=== PATIENT | female | born 1955 | race Caucasian/White ===

== ENCOUNTER 2022-03-24 12:00 | Outpatient (CLI) | payer MEDICARE, OTHER | END 2022-03-24 12:01 | disposition home or self-care (01) | LOC: CSHCT 12:00 | PROVIDERS: ATTEND Physician Assistant Medical | DX: D64.9 Anemia, unspecified (principal); Z98.890 Other specified postprocedural states; K43.9 Ventral hernia without obstruction or gangrene; N32.89 Other specified disorders of bladder | CPT/HCPCS: 74176 ==

== ENCOUNTER 2022-09-27 16:01 | Inpatient (IN) | payer MEDICARE ==
[2022-09-27 17:22] LABS: #Basophils 0.1 10x3/uL (0.0-0.2); #Eosinphils 0.2 10x3/uL (0.0-0.5); #Monocytes 0.5 10x3/uL (0.0-1.1); #Neutrophils 3.7 10x3/uL (1.5-8.4); %Basophils 1.6 % (0.0-2.0); %Eosinophils 3.4 % (0.0-6.0); %Lymphocytes 20.2 % (18.0-47.0); %Neutrophils 65.6 % (40.0-75.0); Mean Corpuscular HGB CONC 31.9 g/dL (32.0-36.0); Mean Corpuscular Hemoglobin 30.5 pg (27.0-33.0); Mean Corpuscular Volume 95.8 fl (81.6-98.3); Mean Platelet Volume 10.1 fl (7.4-10.4); Platelet Count 214 10x3/uL (150-450); RBC Distribution Width 14.6 % (11.5-14.5); Red Blood Cell (RBC) Count 2.62 10x6/uL (3.90-5.03); White Blood Cell (WBC) Count 5.6 10x3/uL (3.5-10.5)
[2022-09-27 17:27] LABS: ALT (SGPT) 36 U/L (8-55); AST (SGOT) 30 U/L (5-34); Albumin 3.6 g/dL (3.4-4.8); Alkaline Phosphatase 75 U/L (40-110); Anion Gap 13 mmol/L (10-20); BUN (Urea Nitrogen) 32 mg/dL (9.8-20.1); Bilirubin, Total 0.5 mg/dL (0.2-1.2); Calc. Creatinine Clearance 0 mL/min (70-130); Calcium 8.9 mg/dL (7.8-10.44); Carbon Dioxide 26 mmol/L (23-31); Chloride 103 mmol/L (98-107); Estimated GFR 37; Globulin 2.8 g/dL (2.4-3.5); Glucose 98 mg/dL (80-115); Potassium 3.6 mmol/L (3.5-5.1); Protein, Total 6.4 g/dL (5.8-8.1); Sodium 138 mmol/L (136-145)
[2022-09-27] MEDS ORDERED: Furosemide 100 MG/10 ML VIAL ONE (18:11)
[2022-09-27] MEDS ORDERED: Senokot S 8.6-50 MG TAB PO PRN (20:31)
[2022-09-27] MEDS ORDERED: Calcium Carbonate 500 MG ChewTAB PO PRN (20:31)
[2022-09-27] MEDS ORDERED: Guaifenesin DM 100-10/5 ML UDCUP PO PRN (20:31)
[2022-09-27] MEDS ORDERED: Ondansetron PF 4 MG/2 ML Vial IVP PRN (20:31)
[2022-09-27] MEDS ORDERED: Dextrose 50% Abboject 50 ML SYRINGE SLOW IVP PRN (20:31)
[2022-09-27] MEDS ORDERED: Acetaminophen 325 MG TAB PO PRN (20:31)
[2022-09-27] MEDS ORDERED: Dextrose 5% in Water 1,000 ML IV PRN (20:31)
[2022-09-27] MEDS ORDERED: Nitroglycerin 0.4 MG TAB (25 Tab Bottle) SL PRN (20:44)
[2022-09-27] MEDS ORDERED: Potassium Chloride 20 MEQ TAB PO SCH (21:00)
[2022-09-27] MEDS: hydrALAZINE 25 MG TAB PO SCH (22:14)
[2022-09-27] MEDS: Sertraline 100 MG TAB PO SCH (22:15)
[2022-09-27] MEDS: Rosuvastatin 20 MG TAB PO SCH (22:15)
[2022-09-27] MEDS: Primidone 50 MG TAB PO SCH (22:16)
[2022-09-28 04:02] LABS: #Basophils 0.1 10x3/uL (0.0-0.2); #Eosinphils 0.3 10x3/uL (0.0-0.5); #Monocytes 0.5 10x3/uL (0.0-1.1); #Neutrophils 3.4 10x3/uL (1.5-8.4); %Basophils 1.2 % (0.0-2.0); %Eosinophils 4.7 % (0.0-6.0); %Lymphocytes 27.2 % (18.0-47.0); %Monocytes 9.1 % (0.0-10.0); %Neutrophils 57.5 % (40.0-75.0); Hemoglobin 7.1 g/dL (12.0-15.5); Mean Corpuscular HGB CONC 32.3 g/dL (32.0-36.0); Mean Corpuscular Hemoglobin 30.7 pg (27.0-33.0); Mean Corpuscular Volume 95.2 fl (81.6-98.3); Mean Platelet Volume 10.2 fl (7.4-10.4); Platelet Count 185 10x3/uL (150-450); RBC Distribution Width 14.5 % (11.5-14.5); Red Blood Cell (RBC) Count 2.31 10x6/uL (3.90-5.03)
[2022-09-28 04:13] LABS: Anion Gap 13 mmol/L (10-20); BUN (Urea Nitrogen) 31 mg/dL (9.8-20.1); Calc. Creatinine Clearance 55 mL/min (70-130); Carbon Dioxide 26 mmol/L (23-31); Chloride 106 mmol/L (98-107); Estimated GFR 39; Glucose 102 mg/dL (80-115); Potassium 3.6 mmol/L (3.5-5.1); Sodium 141 mmol/L (136-145)
[2022-09-28 04:31] LABS: Iron 38 ug/dL (50-170); Iron Binding Capacity, Total 193 mcg/dL (265-497)
[2022-09-28 04:35] LABS: Ferritin 486.48 ng/mL (10-291); Thyroid Stimulating Hormone 3.9875 uIU/mL (0.35-4.94)
[2022-09-28] MEDS ORDERED: Furosemide 20 MG/2 ML VIAL SLOW IVP SCH (06:00)
[2022-09-28] MEDS: Levothyroxine Sodium 100 MCG TAB PO SCH (06:09)
[2022-09-28] MEDS: Furosemide 40 MG/4 ML VIAL SLOW IVP SCH ×2 (06:10→15:26)
[2022-09-28] MEDS ORDERED: Aspirin 81 mg Enteric Coated Tablet PO SCH (09:00)
[2022-09-28] MEDS: Gabapentin 100 MG CAP PO SCH ×3 (09:39→20:42)
[2022-09-28] MEDS: Calcitriol 0.25 MCG CAP PO SCH (09:41)
[2022-09-28] MEDS: Ferrous Sulfate 325 MG TAB PO SCH ×2 (09:41→15:26)
[2022-09-28] MEDS: Folic Acid/Vit B Comp W-C PO SCH (09:42)
[2022-09-28] MEDS: hydrALAZINE 25 MG TAB PO SCH ×3 (09:44→20:43)
[2022-09-28] MEDS: Lantus 1000 UNITS/10 ML VIAL SC SCH (09:45)
[2022-09-28] MEDS: HumaLOG 300 UNITS/3 ML VIAL SC PRN (11:44)
[2022-09-28] MEDS ORDERED: Amlodipine 5 MG TAB PO SCH (12:00)
[2022-09-28 13:40] LABS: Vitamin B12 Greater than 2000 pg/mL (211-911)
[2022-09-28] MEDS ORDERED: EPOETIN ALFA-EPBX (ESRD) 10,000 UNIT/ML VIAL SC SCH (14:45)
[2022-09-28] MEDS: Rosuvastatin 20 MG TAB PO SCH (20:42)
[2022-09-28] MEDS: Primidone 50 MG TAB PO SCH (20:43)
[2022-09-28] MEDS: Sertraline 100 MG TAB PO SCH (20:44)
[2022-09-29 04:47] LABS: #Basophils 0.1 10x3/uL (0.0-0.2); #Eosinphils 0.2 10x3/uL (0.0-0.5); #Monocytes 0.6 10x3/uL (0.0-1.1); #Neutrophils 3.5 10x3/uL (1.5-8.4); %Basophils 1.2 % (0.0-2.0); %Eosinophils 3.8 % (0.0-6.0); %Lymphocytes 25.8 % (18.0-47.0); %Monocytes 9.9 % (0.0-10.0); Hemoglobin 8.7 g/dL (12.0-15.5); Mean Corpuscular HGB CONC 33.1 g/dL (32.0-36.0); Mean Corpuscular Hemoglobin 31.1 pg (27.0-33.0); Mean Corpuscular Volume 93.9 fl (81.6-98.3); Mean Platelet Volume 10.3 fl (7.4-10.4); Platelet Count 160 10x3/uL (150-450); RBC Distribution Width 14.8 % (11.5-14.5)
[2022-09-29 05:06] LABS: Anion Gap 13 mmol/L (10-20); BUN (Urea Nitrogen) 37 mg/dL (9.8-20.1); Calc. Creatinine Clearance 43 mL/min (70-130); Calcium 9.1 mg/dL (7.8-10.44); Carbon Dioxide 26 mmol/L (23-31); Chloride 104 mmol/L (98-107); Estimated GFR 29; Glucose 148 mg/dL (80-115); Sodium 139 mmol/L (136-145)
[2022-09-29] MEDS: Furosemide 40 MG/4 ML VIAL SLOW IVP SCH ×2 (05:25→15:06)
[2022-09-29] MEDS: Levothyroxine Sodium 100 MCG TAB PO SCH (05:25)
[2022-09-29] MEDS: Folic Acid/Vit B Comp W-C PO SCH (10:21)
[2022-09-29] MEDS: Gabapentin 100 MG CAP PO SCH ×3 (10:21→22:10)
[2022-09-29] MEDS: hydrALAZINE 25 MG TAB PO SCH ×3 (10:23→22:09)
[2022-09-29] MEDS: Ferrous Sulfate 325 MG TAB PO SCH ×2 (10:24→15:07)
[2022-09-29] MEDS: Lantus 1000 UNITS/10 ML VIAL SC SCH (10:24)
[2022-09-29] MEDS: Amlodipine 5 MG TAB PO SCH (10:24)
[2022-09-29] MEDS: Calcitriol 0.25 MCG CAP PO SCH (10:24)
[2022-09-29] MEDS: HumaLOG 300 UNITS/3 ML VIAL SC PRN (17:17)
[2022-09-29] MEDS: Sertraline 100 MG TAB PO SCH (22:09)
[2022-09-29] MEDS: Primidone 50 MG TAB PO SCH (22:10)
[2022-09-29] MEDS: Rosuvastatin 20 MG TAB PO SCH (22:11)
[2022-09-30 05:50] LABS: #Basophils 0.1 10x3/uL (0.0-0.2); #Eosinphils 0.3 10x3/uL (0.0-0.5); #Monocytes 0.7 10x3/uL (0.0-1.1); #Neutrophils 3.4 10x3/uL (1.5-8.4); %Basophils 1.2 % (0.0-2.0); %Lymphocytes 26.5 % (18.0-47.0); %Monocytes 10.9 % (0.0-10.0); %Neutrophils 56.1 % (40.0-75.0); Hemoglobin 8.6 g/dL (12.0-15.5); Mean Corpuscular Hemoglobin 30.5 pg (27.0-33.0); Mean Corpuscular Volume 95.4 fl (81.6-98.3); Mean Platelet Volume 10.6 fl (7.4-10.4); Platelet Count 160 10x3/uL (150-450); RBC Distribution Width 14.1 % (11.5-14.5); Red Blood Cell (RBC) Count 2.82 10x6/uL (3.90-5.03)
[2022-09-30 06:04] LABS: Anion Gap 16 mmol/L (10-20); BUN (Urea Nitrogen) 48 mg/dL (9.8-20.1); Calc. Creatinine Clearance 42 mL/min (70-130); Calcium 9.1 mg/dL (7.8-10.44); Carbon Dioxide 26 mmol/L (23-31); Chloride 101 mmol/L (98-107); Estimated GFR 30; Glucose 170 mg/dL (80-115); Potassium 3.9 mmol/L (3.5-5.1); Sodium 139 mmol/L (136-145)
[2022-09-30] MEDS: hydrALAZINE 25 MG TAB PO SCH ×3 (07:16→22:00)
[2022-09-30] MEDS: Furosemide 40 MG/4 ML VIAL SLOW IVP SCH (07:16)
[2022-09-30] MEDS: Levothyroxine Sodium 100 MCG TAB PO SCH (07:16)
[2022-09-30] MEDS: HumaLOG 300 UNITS/3 ML VIAL SC PRN ×2 (07:17→16:28)
[2022-09-30] MEDS: Folic Acid/Vit B Comp W-C PO SCH (09:49)
[2022-09-30] MEDS: Amlodipine 5 MG TAB PO SCH (09:50)
[2022-09-30] MEDS: Gabapentin 100 MG CAP PO SCH ×3 (09:51→21:59)
[2022-09-30] MEDS: Ferrous Sulfate 325 MG TAB PO SCH ×2 (09:51→15:57)
[2022-09-30] MEDS: Calcitriol 0.25 MCG CAP PO SCH (09:52)
[2022-09-30] MEDS: Lantus 1000 UNITS/10 ML VIAL SC SCH (09:53)
[2022-09-30] MEDS ORDERED: Amlodipine 5 MG TAB PO SCH (11:15)
[2022-09-30] MEDS: Furosemide 40 MG TAB PO SCH (15:57)
[2022-09-30] MEDS: Rosuvastatin 20 MG TAB PO SCH (21:59)
[2022-09-30] MEDS: Sertraline 100 MG TAB PO SCH (21:59)
[2022-09-30] MEDS: Primidone 50 MG TAB PO SCH (22:01)
[2022-09-30 22:32] LABS: Creatinine, Urine 31.85 mg/dL (47-110)
[2022-09-30 22:43] LABS: Microalbumin/Creat Ratio 2386.2 mg/g (Less than 30)
[2022-10-01 05:08] LABS: #Basophils 0.1 10x3/uL (0.0-0.2); #Eosinphils 0.4 10x3/uL (0.0-0.5); #Monocytes 0.7 10x3/uL (0.0-1.1); %Basophils 1.2 % (0.0-2.0); %Eosinophils 5.2 % (0.0-6.0); %Monocytes 9.9 % (0.0-10.0); %Neutrophils 59.1 % (40.0-75.0); Hemoglobin 9.2 g/dL (12.0-15.5); Mean Corpuscular HGB CONC 32.2 g/dL (32.0-36.0); Mean Corpuscular Hemoglobin 30.5 pg (27.0-33.0); Mean Corpuscular Volume 94.7 fl (81.6-98.3); Mean Platelet Volume 10.3 fl (7.4-10.4); Platelet Count 154 10x3/uL (150-450); Red Blood Cell (RBC) Count 3.02 10x6/uL (3.90-5.03); White Blood Cell (WBC) Count 6.7 10x3/uL (3.5-10.5)
[2022-10-01] MEDS: Levothyroxine Sodium 100 MCG TAB PO SCH (05:08)
[2022-10-01 05:19] LABS: Albumin 3.1 g/dL (3.4-4.8); Anion Gap 16 mmol/L (10-20); BUN (Urea Nitrogen) 52 mg/dL (9.8-20.1); BUN/Creatinine Ratio 30.59; Calc. Creatinine Clearance 43 mL/min (70-130); Calcium 9.5 mg/dL (7.8-10.44); Carbon Dioxide 26 mmol/L (23-31); Chloride 102 mmol/L (98-107); Estimated GFR 32; Glucose 154 mg/dL (80-115); Potassium 4.4 mmol/L (3.5-5.1); Sodium 140 mmol/L (136-145)
[2022-10-01] MEDS: Ferrous Sulfate 325 MG TAB PO SCH ×2 (08:52→16:08)
[2022-10-01] MEDS: Gabapentin 100 MG CAP PO SCH ×3 (08:53→21:25)
[2022-10-01] MEDS: Furosemide 40 MG TAB PO SCH ×2 (08:53→14:23)
[2022-10-01] MEDS: Calcitriol 0.25 MCG CAP PO SCH (08:54)
[2022-10-01] MEDS: hydrALAZINE 25 MG TAB PO SCH ×3 (08:54→21:24)
[2022-10-01] MEDS: Folic Acid/Vit B Comp W-C PO SCH (08:57)
[2022-10-01] MEDS ORDERED: Amlodipine 5 MG TAB PO SCH (09:00)
[2022-10-01] MEDS: Lantus 1000 UNITS/10 ML VIAL SC SCH (09:02)
[2022-10-01] MEDS: HumaLOG 300 UNITS/3 ML VIAL SC PRN ×3 (12:12→22:32)
[2022-10-01] MEDS: guaiFENesin ER 600 MG TAB PO SCH (21:25)
[2022-10-01] MEDS: Rosuvastatin 20 MG TAB PO SCH (21:25)
[2022-10-01] MEDS: Sertraline 100 MG TAB PO SCH (21:25)
[2022-10-01] MEDS: Primidone 50 MG TAB PO SCH (21:32)
[2022-10-02 04:40] LABS: #Basophils 0.1 10x3/uL (0.0-0.2); #Eosinphils 0.3 10x3/uL (0.0-0.5); #Monocytes 0.8 10x3/uL (0.0-1.1); #Neutrophils 3.8 10x3/uL (1.5-8.4); %Basophils 1.4 % (0.0-2.0); %Eosinophils 5.1 % (0.0-6.0); %Monocytes 12.6 % (0.0-10.0); %Neutrophils 57.4 % (40.0-75.0); Hemoglobin 8.9 g/dL (12.0-15.5); Mean Corpuscular HGB CONC 32.4 g/dL (32.0-36.0); Mean Corpuscular Hemoglobin 30.8 pg (27.0-33.0); Mean Corpuscular Volume 95.2 fl (81.6-98.3); Mean Platelet Volume 10.5 fl (7.4-10.4); Platelet Count 175 10x3/uL (150-450); RBC Distribution Width 14.1 % (11.5-14.5); Red Blood Cell (RBC) Count 2.89 10x6/uL (3.90-5.03); White Blood Cell (WBC) Count 6.7 10x3/uL (3.5-10.5)
[2022-10-02 04:45] LABS: Anion Gap 12 mmol/L (10-20); BUN (Urea Nitrogen) 50 mg/dL (9.8-20.1); Calc. Creatinine Clearance 42 mL/min (70-130); Calcium 9.3 mg/dL (7.8-10.44); Carbon Dioxide 28 mmol/L (23-31); Chloride 102 mmol/L (98-107); Estimated GFR 31; Glucose 125 mg/dL (80-115); Potassium 4.4 mmol/L (3.5-5.1); Sodium 138 mmol/L (136-145)
[2022-10-02] MEDS: Levothyroxine Sodium 100 MCG TAB PO SCH (05:41)
[2022-10-02] MEDS: guaiFENesin ER 600 MG TAB PO SCH ×3 (07:59→20:19)
[2022-10-02] MEDS: Calcitriol 0.25 MCG CAP PO SCH (07:59)
[2022-10-02] MEDS: Amlodipine 10 MG TAB PO SCH (07:59)
[2022-10-02] MEDS: Ferrous Sulfate 325 MG TAB PO SCH ×2 (08:00→16:40)
[2022-10-02] MEDS: Furosemide 40 MG TAB PO SCH ×2 (08:03→13:45)
[2022-10-02] MEDS: hydrALAZINE 25 MG TAB PO SCH ×3 (08:03→20:17)
[2022-10-02] MEDS: Gabapentin 100 MG CAP PO SCH ×3 (08:04→20:18)
[2022-10-02] MEDS: HumaLOG 300 UNITS/3 ML VIAL SC PRN ×4 (08:10→20:43)
[2022-10-02] MEDS ORDERED: Ipratropium/Albuterol 3 ML NEB NEB SCH (08:45)
[2022-10-02] MEDS: Lantus 1000 UNITS/10 ML VIAL SC SCH (09:54)
[2022-10-02] MEDS: Folic Acid/Vit B Comp W-C PO SCH (11:03)
[2022-10-02] MEDS: Ipratropium/Albuterol 3 ML NEB NEB SCH ×3 (11:45→18:57)
[2022-10-02] MEDS: Rosuvastatin 20 MG TAB PO SCH (20:17)
[2022-10-02] MEDS: Primidone 50 MG TAB PO SCH (20:18)
[2022-10-02] MEDS: Sertraline 100 MG TAB PO SCH (20:20)
[2022-10-03 04:54] LABS: #Basophils 0.1 10x3/uL (0.0-0.2); #Eosinphils 0.2 10x3/uL (0.0-0.5); #Monocytes 0.7 10x3/uL (0.0-1.1); #Neutrophils 4.6 10x3/uL (1.5-8.4); %Eosinophils 2.2 % (0.0-6.0); %Lymphocytes 19.8 % (18.0-47.0); %Monocytes 9.5 % (0.0-10.0); %Neutrophils 67.1 % (40.0-75.0); Hemoglobin 8.4 g/dL (12.0-15.5); Mean Corpuscular HGB CONC 31.5 g/dL (32.0-36.0); Mean Corpuscular Volume 95.4 fl (81.6-98.3); Mean Platelet Volume 10.2 fl (7.4-10.4); Platelet Count 162 10x3/uL (150-450); RBC Distribution Width 14.1 % (11.5-14.5); White Blood Cell (WBC) Count 6.9 10x3/uL (3.5-10.5)
[2022-10-03 05:07] LABS: Anion Gap 14 mmol/L (10-20); BUN (Urea Nitrogen) 56 mg/dL (9.8-20.1); Calc. Creatinine Clearance 36 mL/min (70-130); Calcium 9.3 mg/dL (7.8-10.44); Carbon Dioxide 26 mmol/L (23-31); Chloride 100 mmol/L (98-107); Estimated GFR 26; Glucose 181 mg/dL (80-115); Potassium 4.2 mmol/L (3.5-5.1); Sodium 136 mmol/L (136-145)
[2022-10-03] MEDS: Levothyroxine Sodium 100 MCG TAB PO SCH (06:37)
[2022-10-03] MEDS: HumaLOG 300 UNITS/3 ML VIAL SC PRN (06:46)
[2022-10-03] MEDS: Ipratropium/Albuterol 3 ML NEB NEB SCH ×4 (07:05→20:31)
[2022-10-03] MEDS: guaiFENesin ER 600 MG TAB PO SCH ×2 (10:27→21:19)
[2022-10-03] MEDS: Furosemide 40 MG TAB PO SCH ×2 (10:27→15:26)
[2022-10-03] MEDS: Ferrous Sulfate 325 MG TAB PO SCH ×2 (10:27→15:25)
[2022-10-03] MEDS: Gabapentin 100 MG CAP PO SCH ×3 (10:28→21:19)
[2022-10-03] MEDS: Amlodipine 10 MG TAB PO SCH (10:28)
[2022-10-03] MEDS: Lantus 1000 UNITS/10 ML VIAL SC SCH (10:28)
[2022-10-03] MEDS: Calcitriol 0.25 MCG CAP PO SCH (10:28)
[2022-10-03] MEDS: Folic Acid/Vit B Comp W-C PO SCH (10:28)
[2022-10-03] MEDS: hydrALAZINE 25 MG TAB PO SCH ×3 (10:28→21:24)
[2022-10-03] MEDS: Primidone 50 MG TAB PO SCH (21:19)
[2022-10-03] MEDS: Rosuvastatin 20 MG TAB PO SCH (21:20)
[2022-10-03] MEDS: Sertraline 100 MG TAB PO SCH (21:20)
[2022-10-04] MEDS: Levothyroxine Sodium 100 MCG TAB PO SCH (06:23)
[2022-10-04 06:27] VITALS: BMI 31.5
[2022-10-04] MEDS: Ipratropium/Albuterol 3 ML NEB NEB SCH ×3 (07:30→15:00)
[2022-10-04] MEDS: Lantus 1000 UNITS/10 ML VIAL SC SCH (08:51)
[2022-10-04] MEDS: Gabapentin 100 MG CAP PO SCH ×2 (08:52→16:00)
[2022-10-04] MEDS: guaiFENesin ER 600 MG TAB PO SCH (08:52)
[2022-10-04] MEDS: Amlodipine 10 MG TAB PO SCH (08:52)
[2022-10-04] MEDS: hydrALAZINE 25 MG TAB PO SCH ×2 (08:53→12:19)
[2022-10-04] MEDS: Calcitriol 0.25 MCG CAP PO SCH (08:54)
[2022-10-04] MEDS: Ferrous Sulfate 325 MG TAB PO SCH ×2 (08:54→17:01)
[2022-10-04] MEDS: Furosemide 40 MG TAB PO SCH ×2 (08:54→13:45)
[2022-10-04] MEDS: Folic Acid/Vit B Comp W-C PO SCH (08:54)
[2022-10-04] MEDS: HumaLOG 300 UNITS/3 ML VIAL SC PRN (12:19)
[2022-10-04 16:36] VITALS: BP 171/73; TEMP 98.7
== END 2022-10-04 18:22 | disposition home or self-care (01) | DRG 291 ==
LOC: CSHERS 16:01 → CSHTELE 21:36
PROVIDERS: ADMIT Student in an Organized Health Care Education/Training Program; ATTEND Family Medicine
PROC: 30233N1 Transfusion of Nonautologous Red Blood Cells into Peripheral Vein, Percutaneous Approach (ICD-10-PCS; principal; 2022-09-28)
DX: I13.0 Hypertensive heart and chronic kidney disease with heart failure and stage 1 through stage 4 chronic kidney disease, or unspecified chronic kidney disease (principal); I50.33 Acute on chronic diastolic (congestive) heart failure; N17.9 Acute kidney failure, unspecified; N18.4 Chronic kidney disease, stage 4 (severe); Z20.822 Contact with and (suspected) exposure to COVID-19; R53.81 Other malaise; I25.10 Atherosclerotic heart disease of native coronary artery without angina pectoris; K21.9 Gastro-esophageal reflux disease without esophagitis; E89.0 Postprocedural hypothyroidism; E11.22 Type 2 diabetes mellitus with diabetic chronic kidney disease; M19.90 Unspecified osteoarthritis, unspecified site; G40.909 Epilepsy, unspecified, not intractable, without status epilepticus; F41.1 Generalized anxiety disorder; F32.9 Major depressive disorder, single episode, unspecified; G43.909 Migraine, unspecified, not intractable, without status migrainosus; N18.30 Chronic kidney disease, stage 3 unspecified; G47.33 Obstructive sleep apnea (adult) (pediatric); F01.50 Vascular dementia, unspecified severity, without behavioral disturbance, psychotic disturbance, mood disturbance, and anxiety; E78.2 Mixed hyperlipidemia; D63.1 Anemia in chronic kidney disease; E11.319 Type 2 diabetes mellitus with unspecified diabetic retinopathy without macular edema; E11.43 Type 2 diabetes mellitus with diabetic autonomic (poly)neuropathy; I65.23 Occlusion and stenosis of bilateral carotid arteries; Z90.49 Acquired absence of other specified parts of digestive tract; Z90.710 Acquired absence of both cervix and uterus; Z95.5 Presence of coronary angioplasty implant and graft; Z95.1 Presence of aortocoronary bypass graft; Z86.73 Personal history of transient ischemic attack (TIA), and cerebral infarction without residual deficits; Z88.8 Allergy status to other drugs, medicaments and biological substances; Z88.2 Allergy status to sulfonamides; Z79.899 Other long term (current) drug therapy; Z79.890 Hormone replacement therapy; Z79.4 Long term (current) use of insulin; Z79.82 Long term (current) use of aspirin; Z83.3 Family history of diabetes mellitus; Z87.442 Personal history of urinary calculi
CPT/HCPCS: 36415; 36416; 36430; 71045; 80048; 80053; 80069; 82043; 82607; 82728; 83540; 83550; 83880; 84156; 84443; 84484; 85025; 86850; 86900; 86901; 93005; 94640; 94660; 94760; 94762; 94799; 96374; J1650; J1815; J1940; J7620; P9016; Q5105; U0003; U0005

== ENCOUNTER 2023-03-11 09:45 | Day surgery (SDC) | payer MEDICARE ==
[2023-03-10 11:42] VITALS: BMI 30.7
[2023-03-11] MEDS ORDERED: PROPOFOL 40 ML ONE (11:53)
== END 2023-03-11 13:33 | disposition home or self-care (01) ==
LOC: CSHSDC 09:45
PROVIDERS: ATTEND Internal Medicine Gastroenterology
PROC: 0DB68ZX Excision of Stomach, Via Natural or Artificial Opening Endoscopic, Diagnostic (ICD-10-PCS; principal; 2023-03-11)
PROC: 0DBM8ZZ Excision of Descending Colon, Via Natural or Artificial Opening Endoscopic (ICD-10-PCS; 2023-03-11)
DX: D12.4 Benign neoplasm of descending colon (principal); K31.89 Other diseases of stomach and duodenum; Z12.11 Encounter for screening for malignant neoplasm of colon; N18.9 Chronic kidney disease, unspecified; K57.30 Diverticulosis of large intestine without perforation or abscess without bleeding; E11.22 Type 2 diabetes mellitus with diabetic chronic kidney disease; I50.9 Heart failure, unspecified; I13.0 Hypertensive heart and chronic kidney disease with heart failure and stage 1 through stage 4 chronic kidney disease, or unspecified chronic kidney disease; D64.9 Anemia, unspecified; E78.5 Hyperlipidemia, unspecified; E03.9 Hypothyroidism, unspecified; K21.9 Gastro-esophageal reflux disease without esophagitis; Z86.010 Personal history of colon polyps; Z90.710 Acquired absence of both cervix and uterus; Z88.8 Allergy status to other drugs, medicaments and biological substances; Z88.2 Allergy status to sulfonamides; Z88.1 Allergy status to other antibiotic agents; Z98.890 Other specified postprocedural states; Z79.890 Hormone replacement therapy; Z79.899 Other long term (current) drug therapy
CPT/HCPCS: 88305; J2704

== ENCOUNTER 2023-07-13 11:08 | Inpatient (IN) | payer MEDICARE ==
[2023-07-13 11:53] LABS: #Basophils 0.1 10x3/uL (0.0-0.2); #Eosinphils 0.1 10x3/uL (0.0-0.5); #Monocytes 0.6 10x3/uL (0.0-1.1); #Neutrophils 5.3 10x3/uL (1.5-8.4); %Basophils 0.8 % (0.0-2.0); %Eosinophils 1.2 % (0.0-6.0); %Lymphocytes 17.8 % (18.0-47.0); %Monocytes 7.9 % (0.0-10.0); %Neutrophils 71.9 % (40.0-75.0); Hematocrit 37.5 % (34.9-44.5); Hemoglobin 12.6 g/dL (12.0-15.5); Mean Corpuscular HGB CONC 33.6 g/dL (32.0-36.0); Mean Corpuscular Hemoglobin 29.9 pg (27.0-33.0); Mean Corpuscular Volume 89.1 fl (81.6-98.3); Platelet Count 164 10x3/uL (150-450); Red Blood Cell (RBC) Count 4.21 10x6/uL (3.90-5.03); White Blood Cell (WBC) Count 7.4 10x3/uL (3.5-10.5)
[2023-07-13 12:08] LABS: ALT (SGPT) 14 U/L (8-55); AST (SGOT) 17 U/L (5-34); Albumin 3.4 g/dL (3.4-4.8); Alkaline Phosphatase 85 U/L (40-110); Anion Gap 16 mmol/L (10-20); BUN (Urea Nitrogen) 35 mg/dL (9.8-20.1); Bilirubin, Total 0.5 mg/dL (0.2-1.2); CK (CPK) 44 U/L (29-168); Calc. Creatinine Clearance 0 mL/min (70-130); Calcium 9.1 mg/dL (7.8-10.44); Carbon Dioxide 20 mmol/L (23-31); Chloride 107 mmol/L (98-107); Estimated GFR 33; Glucose 282 mg/dL (80-115); Potassium 4.4 mmol/L (3.5-5.1); Protein, Total 6.4 g/dL (5.8-8.1); Sodium 139 mmol/L (136-145)
[2023-07-13 12:10] LABS: Troponin I 0.082 ng/mL (< 0.028)
[2023-07-13] MEDS ORDERED: hydrALAZINE 20 MG/ML VIAL ONE (12:11)
[2023-07-13 12:52] LABS: SARS-CoV-2 NAA Rapid Test Not Detected (NotDetected)
[2023-07-13] MEDS ORDERED: Dextrose 5% in Water 1,000 ML IV PRN (14:28)
[2023-07-13] MEDS ORDERED: Senokot S 8.6-50 MG TAB PO PRN (14:28)
[2023-07-13] MEDS ORDERED: Glucagon 1 MG/ML KIT IM PRN (14:28)
[2023-07-13] MEDS ORDERED: Acetaminophen 325 MG TAB PO PRN (14:28)
[2023-07-13] MEDS ORDERED: Loperamide HCl 2 MG CAP PO PRN (14:28)
[2023-07-13] MEDS ORDERED: Dextrose 50% Abboject 50 ML SYRINGE SLOW IVP PRN (14:28)
[2023-07-13] MEDS ORDERED: Sodium Chloride 0.9% 1,000 ML IV SCH (14:30)
[2023-07-13 15:15] LABS: Troponin I 0.086 ng/mL (< 0.028)
[2023-07-13 15:29] LABS: Magnesium 1.4 mg/dL (1.6-2.6)
[2023-07-13] MEDS ORDERED: Magnesium Sulfate 4 GM in Sodium Chloride 0.9% 250 ML 250 ML IVPB SCH (15:45)
[2023-07-13 16:13] VITALS: BMI 28.7
[2023-07-13] MEDS: hydrALAZINE 20 MG/ML VIAL SLOW IVP PRN (17:03)
[2023-07-13] MEDS: Magnesium 2 GM/50 ML(in water) 2 GM in Premix 1 BAG IVPB SCH ×2 (17:13→19:03)
[2023-07-13] MEDS: Insulin Regular 300 UNITS/3 ML VIAL SC PRN ×2 (17:15→23:31)
[2023-07-13 18:15] LABS: Troponin I 0.097 ng/mL (< 0.028)
[2023-07-13] MEDS: Ondansetron ODT 4 MG TAB PO PRN (19:03)
[2023-07-13] MEDS: Gabapentin 100 MG CAP PO SCH (21:44)
[2023-07-13] MEDS: hydrALAZINE 25 MG TAB PO SCH (21:44)
[2023-07-13] MEDS: Rosuvastatin 20 MG TAB PO SCH (21:45)
[2023-07-14 04:43] LABS: #Basophils 0.1 10x3/uL (0.0-0.2); #Eosinphils 0.2 10x3/uL (0.0-0.5); #Monocytes 0.8 10x3/uL (0.0-1.1); #Neutrophils 6.2 10x3/uL (1.5-8.4); %Basophils 0.7 % (0.0-2.0); %Eosinophils 1.6 % (0.0-6.0); %Lymphocytes 23.1 % (18.0-47.0); %Monocytes 8.7 % (0.0-10.0); %Neutrophils 65.5 % (40.0-75.0); Hematocrit 34.7 % (34.9-44.5); Hemoglobin 11.6 g/dL (12.0-15.5); Mean Corpuscular HGB CONC 33.4 g/dL (32.0-36.0); Mean Corpuscular Hemoglobin 29.9 pg (27.0-33.0); Mean Corpuscular Volume 89.4 fl (81.6-98.3); Mean Platelet Volume 11.2 fl (7.4-10.4); Platelet Count 154 10x3/uL (150-450); RBC Distribution Width 14.3 % (11.5-14.5); Red Blood Cell (RBC) Count 3.88 10x6/uL (3.90-5.03); White Blood Cell (WBC) Count 9.4 10x3/uL (3.5-10.5)
[2023-07-14 04:51] LABS: Anion Gap 13 mmol/L (10-20); BUN (Urea Nitrogen) 33 mg/dL (9.8-20.1); Calc. Creatinine Clearance 45 mL/min (70-130); Calcium 8.8 mg/dL (7.8-10.44); Carbon Dioxide 22 mmol/L (23-31); Chloride 108 mmol/L (98-107); Estimated GFR 36; Glucose 229 mg/dL (80-115); Potassium 4.3 mmol/L (3.5-5.1); Sodium 139 mmol/L (136-145)
[2023-07-14] MEDS: Levothyroxine Sodium 100 MCG TAB PO SCH (06:28)
[2023-07-14] MEDS: Insulin Regular 300 UNITS/3 ML VIAL SC PRN ×4 (06:32→21:22)
[2023-07-14 09:14] LABS: Magnesium 2.5 mg/dL (1.6-2.6); Troponin I 0.093 ng/mL (< 0.028)
[2023-07-14] MEDS: hydrALAZINE 25 MG TAB PO SCH ×3 (09:31→21:10)
[2023-07-14] MEDS: Amlodipine 5 MG TAB PO SCH (09:32)
[2023-07-14] MEDS: Lisinopril 10 MG TAB PO SCH (09:32)
[2023-07-14] MEDS: Gabapentin 100 MG CAP PO SCH ×3 (09:33→21:07)
[2023-07-14] MEDS: Isosorbide Mononitrate 30 MG ER.TAB PO SCH (09:33)
[2023-07-14 18:04] LABS: Bilirubin Neg (Negative); Blood, Urine 10 (Negative); Clarity Clear (Clear); Glucose, Urine (Dipstick) >=1000 mg/dL (Negative); Ketone, Urine Negative (Negative); Leukocyte 25 (Negative); Nitrite Negative (Negative); Protein, Urine (Dipstick) 500 mg/dl (Neg-Trace); Specific Gravity, Urine 1.015 (1.005-1.030); Urobilinogen Normal mg/dL (Less than 2)
[2023-07-14 18:26] LABS: Bacteria/HPF 2+ HPF (None Seen); CAUTI Indications for Culture Dysuria,urgency,freq; RBC/HPF 0-3 HPF (0-3); Squamous Epithelial 0-3 HPF (0-3); Transitional Epithelial 0-3 HPF (None Seen)
[2023-07-14 18:27] LABS: Urine Culture Reflex No No
[2023-07-14] MEDS: Primidone 50 MG TAB PO SCH (21:11)
[2023-07-14] MEDS: Rosuvastatin 20 MG TAB PO SCH (21:19)
[2023-07-14] MEDS: Sertraline 100 MG TAB PO SCH (21:20)
[2023-07-15] MEDS: Ondansetron ODT 4 MG TAB PO PRN ×2 (00:17→08:57)
[2023-07-15] MEDS: Levothyroxine Sodium 100 MCG TAB PO SCH (06:29)
[2023-07-15] MEDS: Insulin Regular 300 UNITS/3 ML VIAL SC PRN ×3 (06:43→21:37)
[2023-07-15] MEDS ORDERED: Nitrofurantoin Monohyd/M-Cryst 100 MG CAP PO SCH (09:00)
[2023-07-15 09:28] LABS: Anion Gap 12 mmol/L (10-20); BUN (Urea Nitrogen) 35 mg/dL (9.8-20.1); Calc. Creatinine Clearance 41 mL/min (70-130); Calcium 8.7 mg/dL (7.8-10.44); Carbon Dioxide 21 mmol/L (23-31); Chloride 108 mmol/L (98-107); Estimated GFR 32; Glucose 313 mg/dL (80-115); Potassium 4.3 mmol/L (3.5-5.1); Sodium 137 mmol/L (136-145)
[2023-07-15] MEDS ORDERED: Iopamidol 300 61% 100 ML VIAL FS ONE (09:49)
[2023-07-15] MEDS: hydrALAZINE 25 MG TAB PO SCH ×3 (10:59→21:38)
[2023-07-15] MEDS: Cefdinir 300 MG CAP PO SCH ×2 (11:00→21:40)
[2023-07-15] MEDS: Isosorbide Mononitrate 30 MG ER.TAB PO SCH (11:00)
[2023-07-15] MEDS: Lisinopril 10 MG TAB PO SCH (11:00)
[2023-07-15] MEDS: Amlodipine 5 MG TAB PO SCH (11:00)
[2023-07-15] MEDS: Gabapentin 100 MG CAP PO SCH ×3 (11:01→21:39)
[2023-07-15] MEDS ORDERED: Insulin NPH Human Isophane 100 UNITS/ML (10 ML VIAL) SC SCH (12:45)
[2023-07-15] MEDS ORDERED: Sodium Chloride 0.9% 500 ML IV SCH (14:15)
[2023-07-15] MEDS: Sodium Chloride 0.45% 1,000 ML IV SCH (19:49)
[2023-07-15] MEDS: Rosuvastatin 20 MG TAB PO SCH (21:38)
[2023-07-15] MEDS: Sertraline 100 MG TAB PO SCH (21:38)
[2023-07-15] MEDS: Primidone 50 MG TAB PO SCH (21:39)
[2023-07-16] MEDS: Sodium Chloride 0.45% 1,000 ML IV SCH ×2 (01:59→06:05)
[2023-07-16 05:32] LABS: Anion Gap 10 mmol/L (10-20); BUN (Urea Nitrogen) 35 mg/dL (9.8-20.1); Calc. Creatinine Clearance 36 mL/min (70-130); Calcium 8.3 mg/dL (7.8-10.44); Carbon Dioxide 21 mmol/L (23-31); Chloride 110 mmol/L (98-107); Estimated GFR 28; Glucose 267 mg/dL (80-115); Potassium 4.3 mmol/L (3.5-5.1); Sodium 137 mmol/L (136-145)
[2023-07-16] MEDS: Levothyroxine Sodium 100 MCG TAB PO SCH (06:05)
[2023-07-16] MEDS: Insulin Regular 300 UNITS/3 ML VIAL SC PRN ×4 (06:06→20:41)
[2023-07-16] MEDS: hydrALAZINE 20 MG/ML VIAL SLOW IVP PRN (06:09)
[2023-07-16] MEDS: Lantus 1000 UNITS/10 ML VIAL SC SCH (08:04)
[2023-07-16] MEDS: Lisinopril 10 MG TAB PO SCH (08:04)
[2023-07-16] MEDS: Cefdinir 300 MG CAP PO SCH ×2 (08:04→20:35)
[2023-07-16] MEDS: Amlodipine 5 MG TAB PO SCH (08:04)
[2023-07-16] MEDS: Isosorbide Mononitrate 30 MG ER.TAB PO SCH (08:05)
[2023-07-16] MEDS: Gabapentin 100 MG CAP PO SCH ×3 (08:05→20:36)
[2023-07-16] MEDS: hydrALAZINE 25 MG TAB PO SCH ×3 (08:05→20:36)
[2023-07-16] MEDS ORDERED: Amlodipine 5 MG TAB PO SCH (09:00)
[2023-07-16] MEDS ORDERED: Isosorbide Mononitrate 30 MG ER.TAB PO SCH (09:00)
[2023-07-16] MEDS: Sodium Chloride 0.9% 1,000 ML IV SCH ×2 (12:43→20:34)
[2023-07-16] MEDS: Rosuvastatin 20 MG TAB PO SCH (20:34)
[2023-07-16] MEDS: Sertraline 100 MG TAB PO SCH (20:35)
[2023-07-16] MEDS: Primidone 50 MG TAB PO SCH (20:39)
[2023-07-16] MEDS: Benzonatate 100 MG CAP PO SCH (21:11)
[2023-07-17 05:06] LABS: Anion Gap 13 mmol/L (10-20); BUN (Urea Nitrogen) 39 mg/dL (9.8-20.1); Calc. Creatinine Clearance 42 mL/min (70-130); Calcium 8.5 mg/dL (7.8-10.44); Carbon Dioxide 17 mmol/L (23-31); Chloride 112 mmol/L (98-107); Estimated GFR 33; Glucose 109 mg/dL (80-115); Potassium 4.6 mmol/L (3.5-5.1); Sodium 137 mmol/L (136-145)
[2023-07-17] MEDS: Sodium Chloride 0.9% 1,000 ML IV SCH ×2 (06:42→12:50)
[2023-07-17] MEDS: Levothyroxine Sodium 100 MCG TAB PO SCH (07:59)
[2023-07-17] MEDS ORDERED: Meclizine HCl 12.5 MG TAB PO PRN (11:48)
[2023-07-17] MEDS: Ondansetron ODT 4 MG TAB PO PRN (12:21)
[2023-07-17] MEDS: Isosorbide Mononitrate 30 MG ER.TAB PO SCH (12:48)
[2023-07-17] MEDS: Gabapentin 100 MG CAP PO SCH ×3 (12:49→20:14)
[2023-07-17] MEDS: Benzonatate 100 MG CAP PO SCH ×3 (12:49→20:13)
[2023-07-17] MEDS: Cefdinir 300 MG CAP PO SCH ×2 (12:49→20:13)
[2023-07-17] MEDS: Amlodipine 10 MG TAB PO SCH (12:49)
[2023-07-17] MEDS: Lantus 1000 UNITS/10 ML VIAL SC SCH (12:51)
[2023-07-17] MEDS: hydrALAZINE 25 MG TAB PO SCH ×3 (13:00→20:15)
[2023-07-17] MEDS: Insulin Regular 300 UNITS/3 ML VIAL SC PRN ×2 (16:37→21:44)
[2023-07-17] MEDS: Rosuvastatin 20 MG TAB PO SCH (20:13)
[2023-07-17] MEDS: Sertraline 100 MG TAB PO SCH (20:13)
[2023-07-17] MEDS: Primidone 50 MG TAB PO SCH (20:14)
[2023-07-18] MEDS: Sodium Chloride 0.9% 1,000 ML IV SCH (04:18)
[2023-07-18 04:27] LABS: Anion Gap 11 mmol/L (10-20); BUN (Urea Nitrogen) 37 mg/dL (9.8-20.1); Calc. Creatinine Clearance 48 mL/min (70-130); Calcium 8.5 mg/dL (7.8-10.44); Carbon Dioxide 19 mmol/L (23-31); Chloride 113 mmol/L (98-107); Estimated GFR 39; Glucose 99 mg/dL (80-115); Potassium 4.4 mmol/L (3.5-5.1); Sodium 139 mmol/L (136-145)
[2023-07-18] MEDS: Levothyroxine Sodium 100 MCG TAB PO SCH (05:22)
[2023-07-18] MEDS: hydrALAZINE 25 MG TAB PO SCH (08:43)
[2023-07-18] MEDS: Isosorbide Mononitrate 30 MG ER.TAB PO SCH (08:44)
[2023-07-18] MEDS: Amlodipine 10 MG TAB PO SCH (08:44)
[2023-07-18] MEDS: Gabapentin 100 MG CAP PO SCH (08:44)
[2023-07-18] MEDS: Cefdinir 300 MG CAP PO SCH (08:44)
[2023-07-18] MEDS: Benzonatate 100 MG CAP PO SCH (08:44)
[2023-07-18] MEDS: Lantus 1000 UNITS/10 ML VIAL SC SCH (08:45)
[2023-07-18] MEDS: Ondansetron ODT 4 MG TAB PO PRN (13:19)
[2023-07-18 14:06] VITALS: BP 126/59; TEMP 98.1
== END 2023-07-18 14:00 | disposition swing bed (61) | DRG 866 ==
LOC: CSHERS 11:08 → CSHTELE 14:13 → OBSVTOIN 07-15 12:36
PROVIDERS: ADMIT Internal Medicine; ATTEND Physician Assistant Medical
DX: B34.9 Viral infection, unspecified (principal); I13.0 Hypertensive heart and chronic kidney disease with heart failure and stage 1 through stage 4 chronic kidney disease, or unspecified chronic kidney disease; F01.54 Vascular dementia, unspecified severity, with anxiety; I50.32 Chronic diastolic (congestive) heart failure; N17.9 Acute kidney failure, unspecified; E86.0 Dehydration; N18.30 Chronic kidney disease, stage 3 unspecified; E11.22 Type 2 diabetes mellitus with diabetic chronic kidney disease; I25.10 Atherosclerotic heart disease of native coronary artery without angina pectoris; E03.9 Hypothyroidism, unspecified; M19.90 Unspecified osteoarthritis, unspecified site; F32.A Depression, unspecified; G47.33 Obstructive sleep apnea (adult) (pediatric); E11.42 Type 2 diabetes mellitus with diabetic polyneuropathy; I48.0 Paroxysmal atrial fibrillation; F41.8 Other specified anxiety disorders; I25.118 Atherosclerotic heart disease of native coronary artery with other forms of angina pectoris; I65.23 Occlusion and stenosis of bilateral carotid arteries; R79.89 Other specified abnormal findings of blood chemistry; E66.9 Obesity, unspecified; R63.4 Abnormal weight loss; Z95.1 Presence of aortocoronary bypass graft; Z86.73 Personal history of transient ischemic attack (TIA), and cerebral infarction without residual deficits; Z88.2 Allergy status to sulfonamides; Z88.8 Allergy status to other drugs, medicaments and biological substances; Z88.1 Allergy status to other antibiotic agents; Z79.890 Hormone replacement therapy; Z79.899 Other long term (current) drug therapy; Z79.82 Long term (current) use of aspirin; Z79.4 Long term (current) use of insulin; Z90.49 Acquired absence of other specified parts of digestive tract; Z90.710 Acquired absence of both cervix and uterus; Z98.890 Other specified postprocedural states; Z11.52 Encounter for screening for COVID-19; Z68.28 Body mass index [BMI] 28.0-28.9, adult; E78.2 Mixed hyperlipidemia; E11.65 Type 2 diabetes mellitus with hyperglycemia; D63.1 Anemia in chronic kidney disease
CPT/HCPCS: 36415; 36416; 70450; 70551; 71045; 74177; 80048; 80053; 81001; 82550; 83036; 83605; 83735; 83880; 84484; 85025; 93005; 94760; 96361; 96374; J0360; J1815; J3475; J7030; J7050; Q0162

== ENCOUNTER 2024-02-12 18:13 | Emergency (ER) | payer MEDICARE ==
[2024-02-12 19:06] LABS: #Basophils 0.06 10x3/uL (0.0-0.2); #Eosinphils 0.38 10x3/uL (0.0-0.5); #Monocytes 0.55 10x3/uL (0.0-1.1); %Basophils 0.9 % (0.0-2.0); %Lymphocytes 19.7 % (18.0-47.0); %Monocytes 8.6 % (0.0-10.0); %Neutrophils 64.5 % (40.0-75.0); Hematocrit 26.6 % (34.9-44.5); Hemoglobin 8.8 g/dL (12.0-15.5); Mean Corpuscular HGB CONC 33.1 g/dL (32.0-36.0); Mean Corpuscular Volume 93.7 fL (81.6-98.3); Mean Platelet Volume 10.2 fL (7.4-10.4); Platelet Count 167 10x3/uL (150-450); RBC Distribution Width 13.3 % (11.5-14.5); Red Blood Cell (RBC) Count 2.84 10x6/uL (3.90-5.03); White Blood Cell (WBC) Count 6.4 10x3/uL (3.5-10.5)
[2024-02-12 19:17] LABS: ALT (SGPT) 13 U/L (8-55); AST (SGOT) 21 U/L (5-34); Albumin 3.8 g/dL (3.4-4.8); Alkaline Phosphatase 83 U/L (40-110); Anion Gap 18 mmol/L (10-20); BUN (Urea Nitrogen) 35 mg/dL (9.8-20.1); Bilirubin, Total 0.4 mg/dL (0.2-1.2); Calc. Creatinine Clearance 0 mL/min (70-130); Calcium 9.6 mg/dL (7.8-10.44); Carbon Dioxide 23 mmol/L (23-31); Chloride 105 mmol/L (98-107); Estimated GFR 27; Globulin 2.7 g/dL (2.4-3.5); Glucose 113 mg/dL (80-115); Potassium 3.9 mmol/L (3.5-5.1); Protein, Total 6.5 g/dL (5.8-8.1); Sodium 142 mmol/L (136-145)
[2024-02-12 19:22] LABS: Troponin I 0.029 ng/mL (< 0.028)
== END 2024-02-12 22:30 | disposition home or self-care (01) ==
LOC: CSHERS 18:13
DX: I13.0 Hypertensive heart and chronic kidney disease with heart failure and stage 1 through stage 4 chronic kidney disease, or unspecified chronic kidney disease (principal); E11.22 Type 2 diabetes mellitus with diabetic chronic kidney disease; I50.9 Heart failure, unspecified; N18.4 Chronic kidney disease, stage 4 (severe); K21.9 Gastro-esophageal reflux disease without esophagitis; E03.9 Hypothyroidism, unspecified; Z79.899 Other long term (current) drug therapy; Z79.4 Long term (current) use of insulin
CPT/HCPCS: 36415; 71045; 80053; 83880; 84484; 85025; 93005

== ENCOUNTER 2024-02-22 12:46 | Inpatient (IN) | payer MEDICARE ==
[2024-02-22] MEDS ORDERED: Furosemide 40 MG (4 mL) VIAL ONE ×2 (13:42→16:18)
[2024-02-22 13:49] LABS: #Basophils 0.06 10x3/uL (0.0-0.2); #Eosinphils 0.01 10x3/uL (0.0-0.5); #Monocytes 0.34 10x3/uL (0.0-1.1); #Neutrophils 6.12 10x3/uL (1.5-8.4); %Basophils 0.8 % (0.0-2.0); %Eosinophils 0.1 % (0.0-6.0); %Lymphocytes 9.1 % (18.0-47.0); %Monocytes 4.7 % (0.0-10.0); %Neutrophils 84.7 % (40.0-75.0); Hematocrit 28.5 % (34.9-44.5); Hemoglobin 9.4 g/dL (12.0-15.5); Mean Corpuscular Volume 94.1 fL (81.6-98.3); Mean Platelet Volume 10.5 fL (7.4-10.4); Platelet Count 164 10x3/uL (150-450); RBC Distribution Width 13.5 % (11.5-14.5); Red Blood Cell (RBC) Count 3.03 10x6/uL (3.90-5.03); White Blood Cell (WBC) Count 7.2 10x3/uL (3.5-10.5)
[2024-02-22 13:57] LABS: PTT 27.3 sec (22.0-33.0); Prothrombin Time 11.1 sec (9.5-12.1)
[2024-02-22 14:01] LABS: ALT (SGPT) 40 U/L (8-55); AST (SGOT) 59 U/L (5-34); Alkaline Phosphatase 97 U/L (40-110); Anion Gap 19 mmol/L (10-20); BUN (Urea Nitrogen) 56 mg/dL (9.8-20.1); Bilirubin, Total 0.5 mg/dL (0.2-1.2); Calc. Creatinine Clearance 0 mL/min (70-130); Calcium 9.6 mg/dL (7.8-10.44); Carbon Dioxide 20 mmol/L (23-31); Chloride 106 mmol/L (98-107); Estimated GFR 23; Globulin 2.9 g/dL (2.4-3.5); Glucose 185 mg/dL (80-115); Magnesium 1.9 mg/dL (1.6-2.6); Potassium 3.8 mmol/L (3.5-5.1); Protein, Total 6.9 g/dL (5.8-8.1); Sodium 141 mmol/L (136-145)
[2024-02-22 14:15] LABS: Troponin I 3.262 ng/mL (< 0.028)
[2024-02-22] MEDS ORDERED: Cefepime 2 GM VIAL ONE (14:20)
[2024-02-22 14:27] LABS: Influenza A by NAA Not Detected (NotDetected); Influenza B by NAA Not Detected (NotDetected); SARS-CoV-2 NAA Rapid Test Not Detected (NotDetected)
[2024-02-22] MEDS ORDERED: Vancomycin 2 GM in Sodium Chloride 0.9% 500 ML IVPB SCH (14:30)
[2024-02-22] MEDS ORDERED: Aspirin Chewable 81 MG TAB ONE (14:49)
[2024-02-22] MEDS ORDERED: Enoxaparin 100 MG (1 mL) SYRINGE ONE (15:44)
[2024-02-22] MEDS ORDERED: Acetaminophen 325 MG TAB PO PRN (16:31)
[2024-02-22] MEDS ORDERED: Glucagon 1 MG/ML KIT IM PRN (16:36)
[2024-02-22] MEDS ORDERED: Dextrose 5% in Water 1,000 ML IV PRN (16:36)
[2024-02-22] MEDS ORDERED: Dextrose 50% Abboject 50 ML SYRINGE SLOW IVP PRN (16:36)
[2024-02-22 17:22] LABS: Iron 34 ug/dL (50-170)
[2024-02-22 17:45] LABS: Troponin I 4.797 ng/mL (< 0.028)
[2024-02-22 17:51] LABS: Ferritin 1534.03 ng/mL (10-291); Thyroid Stimulating Hormone 0.0279 uIU/mL (0.35-4.94)
[2024-02-22 17:57] VITALS: BMI 33.0
[2024-02-22] MEDS ORDERED: Electrolyte Replacement Protocol 1 EACH FS SCH (18:15)
[2024-02-22 19:00] LABS: Free T4 (Free Thyroxine) 1.65 ng/dL (0.70-1.48)
[2024-02-22] MEDS: Aspirin 325 MG TAB PO SCH (19:25)
[2024-02-22] MEDS: Acetaminophen 325 MG TAB PO SCH (19:25)
[2024-02-22] MEDS: Potassium Chloride 20 MEQ TAB PO SCH (19:25)
[2024-02-22] MEDS: Insulin Lispro 100 UNIT/ML 10 ML VIAL SC PRN ×2 (19:29→21:12)
[2024-02-22] MEDS: Magnesium 2 GM/50 ML(in water) 2 GM in Premix 1 BAG IVPB SCH (19:30)
[2024-02-22] MEDS: VANCOMYCIN 2 GRAM/400 ML BAG 2 GM in Premix 1 BAG IVPB SCH (19:38)
[2024-02-22] MEDS: Cefepime 2 GM in Sodium Chloride 0.9% 100 ML IVPB SCH (19:38)
[2024-02-22 20:41] LABS: Troponin I 5.22 ng/mL (< 0.028)
[2024-02-22] MEDS ORDERED: Heparin 5,000 UNITS/ML VIAL SC SCH (21:00)
[2024-02-22] MEDS ORDERED: Enoxaparin 80 MG (0.8 mL) SYRINGE SC SCH (21:00)
[2024-02-22] MEDS: Famotidine/PF 20 mg/2ml Vial SLOW IVP SCH (21:05)
[2024-02-22] MEDS: Estradiol 0.01% Vaginal Cream 42.5 gm Tube VAG SCH (21:06)
[2024-02-22] MEDS: Nitroglycerin 2% Ointment 1 INCH/1 GM Packet TOP SCH (21:06)
[2024-02-22 23:47] LABS: RBC/HPF 0-3 HPF (0-3); Squamous Epithelial 0-3 HPF (0-3)
[2024-02-22 23:48] LABS: Bacteria/HPF Rare-Few HPF (None Seen); Mucous/LPF Rare LPF (<2+)
[2024-02-23 03:43] LABS: #Basophils 0.02 10x3/uL (0.0-0.2); #Monocytes 0.19 10x3/uL (0.0-1.1); #Neutrophils 4.02 10x3/uL (1.5-8.4); %Basophils 0.4 % (0.0-2.0); %Lymphocytes 9.7 % (18.0-47.0); %Neutrophils 84.4 % (40.0-75.0); Hematocrit 26.3 % (34.9-44.5); Hemoglobin 8.7 g/dL (12.0-15.5); Mean Corpuscular HGB CONC 33.1 g/dL (32.0-36.0); Mean Corpuscular Volume 93.6 fL (81.6-98.3); Mean Platelet Volume 10.8 fL (7.4-10.4); Platelet Count 136 10x3/uL (150-450); RBC Distribution Width 13.5 % (11.5-14.5); Red Blood Cell (RBC) Count 2.81 10x6/uL (3.90-5.03); White Blood Cell (WBC) Count 4.8 10x3/uL (3.5-10.5)
[2024-02-23 04:05] LABS: ALT (SGPT) 30 U/L (8-55); AST (SGOT) 39 U/L (5-34); Albumin 3.2 g/dL (3.4-4.8); Alkaline Phosphatase 88 U/L (40-110); Anion Gap 16 mmol/L (10-20); BUN (Urea Nitrogen) 58 mg/dL (9.8-20.1); Bilirubin, Total 0.3 mg/dL (0.2-1.2); Calc. Creatinine Clearance 38 mL/min (70-130); Calcium 9.4 mg/dL (7.8-10.44); Carbon Dioxide 19 mmol/L (23-31); Chloride 107 mmol/L (98-107); Estimated GFR 25; Globulin 3.2 g/dL (2.4-3.5); Glucose 303 mg/dL (80-115); Protein, Total 6.4 g/dL (5.8-8.1); Sodium 138 mmol/L (136-145)
[2024-02-23 05:56] LABS: Iron Binding Capacity, Total 225 mcg/dL (265-497)
[2024-02-23] MEDS: Furosemide 40 MG (4 mL) VIAL SLOW IVP SCH ×2 (06:15→16:42)
[2024-02-23] MEDS: Aspirin Chewable 81 MG TAB PO SCH (10:16)
[2024-02-23] MEDS ORDERED: Communication Order-Pharmacy FS SCH (12:45)
[2024-02-23] MEDS: Enoxaparin 100 MG (1 mL) SYRINGE SC SCH (16:42)
[2024-02-23] MEDS ORDERED: Iron Sucrose Complex 200 MG in Sodium Chloride 0.9% 100 ML IVPB SCH (17:45)
[2024-02-23] MEDS: Albumin 25% 25 GM (100 mL) BOT IVPB SCH (18:33)
[2024-02-23] MEDS: Ferrous Sulfate 325 MG TAB PO SCH (19:19)
[2024-02-23] MEDS: EPOETIN ALFA-EPBX (ESRD) 3,000 UNITS/ML VIAL SC SCH (19:20)
[2024-02-23] MEDS: EPOETIN ALFA-EPBX (ESRD) 4,000 UNITS/ML VIAL SC SCH (19:20)
[2024-02-23] MEDS: Epoetin (ESRD) 10,000 UNITS/ML VIAL SC SCH (19:46)
[2024-02-23] MEDS: Acetylcysteine 800 MG/4 ML VIAL PO SCH (22:07)
[2024-02-23] MEDS: Sodium Ferric Gluconate 250 MG in Sodium Chloride 0.9% 250 ML 250 ML IVPB SCH (22:28)
[2024-02-24 03:50] LABS: #Basophils 0.06 10x3/uL (0.0-0.2); #Eosinphils 0.06 10x3/uL (0.0-0.5); #Monocytes 0.62 10x3/uL (0.0-1.1); #Neutrophils 6.46 10x3/uL (1.5-8.4); %Basophils 0.6 % (0.0-2.0); %Eosinophils 0.6 % (0.0-6.0); %Lymphocytes 21.6 % (18.0-47.0); %Monocytes 6.7 % (0.0-10.0); %Neutrophils 69.5 % (40.0-75.0); Hematocrit 26.6 % (34.9-44.5); Hemoglobin 8.6 g/dL (12.0-15.5); Mean Corpuscular HGB CONC 32.3 g/dL (32.0-36.0); Mean Corpuscular Hemoglobin 30.6 pg (27.0-33.0); Mean Corpuscular Volume 94.7 fL (81.6-98.3); Mean Platelet Volume 10.7 fL (7.4-10.4); Platelet Count 148 10x3/uL (150-450); RBC Distribution Width 13.5 % (11.5-14.5); Red Blood Cell (RBC) Count 2.81 10x6/uL (3.90-5.03); White Blood Cell (WBC) Count 9.3 10x3/uL (3.5-10.5)
[2024-02-24 04:05] LABS: Anion Gap 15 mmol/L (10-20); BUN (Urea Nitrogen) 66 mg/dL (9.8-20.1); Calc. Creatinine Clearance 38 mL/min (70-130); Carbon Dioxide 21 mmol/L (23-31); Chloride 105 mmol/L (98-107); Sodium 137 mmol/L (136-145)
[2024-02-24 04:06] LABS: Albumin 3.8 g/dL (3.4-4.8); BUN/Creatinine Ratio 31.43; Calcium 9.9 mg/dL (7.8-10.44); Estimated GFR 25; Glucose 334 mg/dL (80-115); Phosphorus 2.2 mg/dL (2.3-4.7)
[2024-02-24] MEDS: Furosemide 40 MG (4 mL) VIAL SLOW IVP SCH (07:07)
[2024-02-24] MEDS ORDERED: Heparin 10,000 UNITS/ 10 ML VIAL ONE (07:11)
[2024-02-24] MEDS ORDERED: Lidocaine 1% (PF) 30 ML VIAL ONE (07:11)
[2024-02-24] MEDS ORDERED: Nitroglycerin 50 MG/250 ML BOT 0 ML ONE (07:11)
[2024-02-24] MEDS: Sodium Chloride 0.9% 1,000 ML IV SCH (07:12)
[2024-02-24] MEDS ORDERED: fentaNYL 50 mcg/mL 1 mL Vial ONE (07:56)
[2024-02-24] MEDS ORDERED: Adenosine 6 mg (2 mL) VIAL ONE (07:56)
[2024-02-24] MEDS ORDERED: Midazolam HCl 2 mg/2 ml Vial ONE (07:56)
[2024-02-24] MEDS: Lantus 1000 UNITS/10 ML VIAL SC SCH ×2 (09:26→21:39)
[2024-02-24] MEDS: Gabapentin 100 MG CAP PO SCH (09:27)
[2024-02-24] MEDS: hydrALAZINE 25 MG TAB PO SCH (09:27)
[2024-02-24] MEDS: PHOS-NAK 1 PKT PACK PO SCH (09:27)
[2024-02-24] MEDS: Calcitriol 0.25 MCG CAP PO SCH (09:27)
[2024-02-24] MEDS: Folic Acid 1 MG TAB PO SCH (09:27)
[2024-02-24] MEDS: Escitalopram Oxalate 10 mg Tablet PO SCH (09:27)
[2024-02-24] MEDS: Amlodipine 5 MG TAB PO SCH (09:27)
[2024-02-24] MEDS: Isosorbide Mononitrate 30 MG ER.TAB PO SCH (10:31)
[2024-02-24] MEDS: Rosuvastatin 10 MG TAB PO SCH (21:38)
[2024-02-24] MEDS: Insulin Lispro 100 UNIT/ML 10 ML VIAL SC PRN (21:41)
[2024-02-25 04:40] LABS: #Basophils 0.05 10x3/uL (0.0-0.2); #Eosinphils 0.39 10x3/uL (0.0-0.5); #Monocytes 0.67 10x3/uL (0.0-1.1); #Neutrophils 5.54 10x3/uL (1.5-8.4); %Basophils 0.6 % (0.0-2.0); %Eosinophils 4.6 % (0.0-6.0); %Lymphocytes 20.4 % (18.0-47.0); %Monocytes 7.9 % (0.0-10.0); %Neutrophils 65.6 % (40.0-75.0); Hematocrit 24.8 % (34.9-44.5); Hemoglobin 8.1 g/dL (12.0-15.5); Mean Corpuscular HGB CONC 32.7 g/dL (32.0-36.0); Mean Corpuscular Hemoglobin 30.7 pg (27.0-33.0); Mean Corpuscular Volume 93.9 fL (81.6-98.3); Mean Platelet Volume 10.6 fL (7.4-10.4); Platelet Count 151 10x3/uL (150-450); RBC Distribution Width 13.5 % (11.5-14.5); Red Blood Cell (RBC) Count 2.64 10x6/uL (3.90-5.03); White Blood Cell (WBC) Count 8.5 10x3/uL (3.5-10.5)
[2024-02-25 04:55] LABS: Albumin 3.1 g/dL (3.4-4.8); Anion Gap 12 mmol/L (10-20); BUN (Urea Nitrogen) 60 mg/dL (9.8-20.1); BUN/Creatinine Ratio 34.48; Calc. Creatinine Clearance 46 mL/min (70-130); Calcium 9.5 mg/dL (7.8-10.44); Carbon Dioxide 24 mmol/L (23-31); Chloride 108 mmol/L (98-107); Estimated GFR 31; Glucose 196 mg/dL (80-115); Phosphorus 2.8 mg/dL (2.3-4.7); Potassium 3.6 mmol/L (3.5-5.1); Sodium 140 mmol/L (136-145)
[2024-02-25] MEDS: Levothyroxine Sodium 75 MCG TAB PO SCH (05:05)
[2024-02-25] MEDS: Isosorbide Mononitrate 30 MG ER.TAB PO SCH (09:57)
[2024-02-25] MEDS: Sodium Chloride 0.9% 1,000 ML IV SCH (09:58)
[2024-02-25] MEDS: Lantus 1000 UNITS/10 ML VIAL SC SCH (09:59)
[2024-02-25] MEDS: Insulin Lispro 100 UNIT/ML 10 ML VIAL SC PRN (11:54)
[2024-02-26 04:53] LABS: #Basophils 0.05 10x3/uL (0.0-0.2); #Monocytes 0.78 10x3/uL (0.0-1.1); %Basophils 0.6 % (0.0-2.0); %Eosinophils 7.2 % (0.0-6.0); %Lymphocytes 20.1 % (18.0-47.0); %Monocytes 9.3 % (0.0-10.0); Hematocrit 25.6 % (34.9-44.5); Hemoglobin 8.4 g/dL (12.0-15.5); Mean Corpuscular HGB CONC 32.8 g/dL (32.0-36.0); Mean Corpuscular Hemoglobin 30.7 pg (27.0-33.0); Mean Corpuscular Volume 93.4 fL (81.6-98.3); Mean Platelet Volume 10.3 fL (7.4-10.4); Platelet Count 175 10x3/uL (150-450); RBC Distribution Width 13.6 % (11.5-14.5); Red Blood Cell (RBC) Count 2.74 10x6/uL (3.90-5.03); White Blood Cell (WBC) Count 8.4 10x3/uL (3.5-10.5)
[2024-02-26 04:56] LABS: Anion Gap 12 mmol/L (10-20); BUN (Urea Nitrogen) 49 mg/dL (9.8-20.1); BUN/Creatinine Ratio 31.41; Calc. Creatinine Clearance 51 mL/min (70-130); Calcium 9.5 mg/dL (7.8-10.44); Carbon Dioxide 24 mmol/L (23-31); Chloride 107 mmol/L (98-107); Estimated GFR 36; Glucose 179 mg/dL (80-115); Phosphorus 2.9 mg/dL (2.3-4.7); Potassium 3.5 mmol/L (3.5-5.1); Sodium 139 mmol/L (136-145)
[2024-02-26] MEDS: ALPRAZolam 0.25 MG TAB PO PRN (10:44)
[2024-02-27 05:09] LABS: #Basophils 0.06 10x3/uL (0.0-0.2); #Eosinphils 0.73 10x3/uL (0.0-0.5); #Neutrophils 4.48 10x3/uL (1.5-8.4); %Basophils 0.8 % (0.0-2.0); %Eosinophils 9.8 % (0.0-6.0); %Lymphocytes 19.7 % (18.0-47.0); %Monocytes 9.4 % (0.0-10.0); %Neutrophils 59.8 % (40.0-75.0); Hemoglobin 8.7 g/dL (12.0-15.5); Mean Corpuscular HGB CONC 33.5 g/dL (32.0-36.0); Mean Corpuscular Hemoglobin 31.6 pg (27.0-33.0); Mean Corpuscular Volume 94.5 fL (81.6-98.3); Mean Platelet Volume 10.3 fL (7.4-10.4); Platelet Count 172 10x3/uL (150-450); RBC Distribution Width 13.7 % (11.5-14.5); Red Blood Cell (RBC) Count 2.75 10x6/uL (3.90-5.03); White Blood Cell (WBC) Count 7.5 10x3/uL (3.5-10.5)
[2024-02-27 05:13] LABS: Albumin 2.9 g/dL (3.4-4.8); Anion Gap 12 mmol/L (10-20); BUN (Urea Nitrogen) 43 mg/dL (9.8-20.1); BUN/Creatinine Ratio 27.39; Calc. Creatinine Clearance 51 mL/min (70-130); Calcium 9.3 mg/dL (7.8-10.44); Carbon Dioxide 23 mmol/L (23-31); Chloride 108 mmol/L (98-107); Estimated GFR 35; Glucose 155 mg/dL (80-115); Phosphorus 2.9 mg/dL (2.3-4.7); Potassium 3.5 mmol/L (3.5-5.1); Sodium 139 mmol/L (136-145)
[2024-02-27] MEDS: Ferrous Sulfate 325 MG TAB PO SCH (09:12)
[2024-02-27 11:02] LABS: Magnesium 1.7 mg/dL (1.6-2.6)
[2024-02-27] MEDS: Potassium Chloride 20 MEQ TAB PO SCH (11:08)
[2024-02-27] MEDS ORDERED: [UNRECOGNIZED DRUG - REMARK] SC SCH (14:30)
[2024-02-27] MEDS ORDERED: [UNRECOGNIZED DRUG - REMARK] SC SCH (14:30)
[2024-02-27] MEDS: [UNRECOGNIZED DRUG - REMARK] SC SCH (15:20)
[2024-02-27] MEDS: [UNRECOGNIZED DRUG - REMARK] SC SCH (15:21)
[2024-02-28 03:59] LABS: #Basophils 0.06 10x3/uL (0.0-0.2); #Monocytes 0.68 10x3/uL (0.0-1.1); #Neutrophils 4.09 10x3/uL (1.5-8.4); %Basophils 0.8 % (0.0-2.0); %Eosinophils 9.9 % (0.0-6.0); %Lymphocytes 20.7 % (18.0-47.0); %Monocytes 9.6 % (0.0-10.0); %Neutrophils 57.9 % (40.0-75.0); Hematocrit 26.1 % (34.9-44.5); Hemoglobin 8.8 g/dL (12.0-15.5); Mean Corpuscular HGB CONC 33.7 g/dL (32.0-36.0); Mean Corpuscular Hemoglobin 31.9 pg (27.0-33.0); Mean Corpuscular Volume 94.6 fL (81.6-98.3); Mean Platelet Volume 10.2 fL (7.4-10.4); Platelet Count 176 10x3/uL (150-450); RBC Distribution Width 14.6 % (11.5-14.5); Red Blood Cell (RBC) Count 2.76 10x6/uL (3.90-5.03); White Blood Cell (WBC) Count 7.1 10x3/uL (3.5-10.5)
[2024-02-28 04:15] LABS: Anion Gap 11 mmol/L (10-20); BUN (Urea Nitrogen) 46 mg/dL (9.8-20.1); Calc. Creatinine Clearance 44 mL/min (70-130); Calcium 9.5 mg/dL (7.8-10.44); Carbon Dioxide 23 mmol/L (23-31); Chloride 110 mmol/L (98-107); Estimated GFR 30; Glucose 198 mg/dL (80-115); Potassium 4.2 mmol/L (3.5-5.1); Sodium 140 mmol/L (136-145)
[2024-02-28] MEDS ORDERED: Heparin 10,000 UNITS/ 10 ML VIAL ONE (07:47)
[2024-02-28] MEDS ORDERED: Lidocaine 1% (PF) 30 ML VIAL ONE (07:47)
[2024-02-28] MEDS ORDERED: Nitroglycerin 50 MG/250 ML BOT 0 ML ONE (07:47)
[2024-02-28] MEDS: Carvedilol 12.5 MG TAB PO SCH ×2 (09:40→17:23)
[2024-02-28] MEDS: Sodium Chloride 0.9% 1,000 ML IV SCH ×2 (09:40→12:35)
[2024-02-28] MEDS ORDERED: Midazolam HCl 2 mg/2 ml Vial ONE (10:27)
[2024-02-28] MEDS ORDERED: fentaNYL 50 mcg/mL 1 mL Vial ONE (10:27)
[2024-02-28] MEDS ORDERED: Nitroglycerin 0.4 MG TAB (25 Tab Bottle) SL PRN (11:24)
[2024-02-28] MEDS ORDERED: Acetaminophen/Codeine 30-300mg Tablet PO PRN ×2 (11:24)
[2024-02-28] MEDS ORDERED: Sodium Chloride 0.9% 200 ML IV PRN (11:24)
[2024-02-28] MEDS ORDERED: Iopamidol 300 61% 100 ML VIAL FS ONE (13:02)
[2024-02-28] MEDS ORDERED: Carvedilol 3.125 MG TAB PO SCH (17:00)
[2024-02-28] MEDS: Ranolazine ER 500 MG TAB PO SCH (21:40)
[2024-02-28] MEDS: Rosuvastatin 20 MG TAB PO SCH (21:40)
[2024-02-29 04:15] LABS: #Basophils 0.04 10x3/uL (0.0-0.2); #Monocytes 0.57 10x3/uL (0.0-1.1); #Neutrophils 3.55 10x3/uL (1.5-8.4); %Basophils 0.7 % (0.0-2.0); %Eosinophils 8.5 % (0.0-6.0); %Lymphocytes 19.5 % (18.0-47.0); %Monocytes 9.7 % (0.0-10.0); %Neutrophils 60.7 % (40.0-75.0); Hematocrit 24.5 % (34.9-44.5); Hemoglobin 8.2 g/dL (12.0-15.5); Mean Corpuscular HGB CONC 33.5 g/dL (32.0-36.0); Mean Corpuscular Hemoglobin 31.9 pg (27.0-33.0); Mean Corpuscular Volume 95.3 fL (81.6-98.3); Mean Platelet Volume 10.2 fL (7.4-10.4); Platelet Count 155 10x3/uL (150-450); RBC Distribution Width 14.7 % (11.5-14.5); Red Blood Cell (RBC) Count 2.57 10x6/uL (3.90-5.03); White Blood Cell (WBC) Count 5.9 10x3/uL (3.5-10.5)
[2024-02-29 04:24] LABS: Anion Gap 11 mmol/L (10-20); BUN (Urea Nitrogen) 44 mg/dL (9.8-20.1); Calc. Creatinine Clearance 51 mL/min (70-130); Calcium 9.3 mg/dL (7.8-10.44); Carbon Dioxide 20 mmol/L (23-31); Chloride 113 mmol/L (98-107); Estimated GFR 35; Glucose 203 mg/dL (80-115); Sodium 140 mmol/L (136-145)
[2024-02-29] MEDS: Isosorbide Mononitrate 60 MG ER.TAB PO SCH (08:26)
[2024-02-29 13:59] LABS: Iron 32 ug/dL (50-170); Iron Binding Capacity, Total 173 mcg/dL (265-497)
[2024-02-29] MEDS: Torsemide 20 MG TAB PO SCH (21:28)
[2024-03-01 05:45] LABS: #Basophils 0.04 10x3/uL (0.0-0.2); #Eosinphils 0.55 10x3/uL (0.0-0.5); #Monocytes 0.57 10x3/uL (0.0-1.1); %Basophils 0.6 % (0.0-2.0); %Eosinophils 8.8 % (0.0-6.0); %Lymphocytes 18.8 % (18.0-47.0); %Monocytes 9.1 % (0.0-10.0); %Neutrophils 62.4 % (40.0-75.0); Hemoglobin 8.2 g/dL (12.0-15.5); Mean Corpuscular HGB CONC 32.8 g/dL (32.0-36.0); Mean Corpuscular Hemoglobin 31.2 pg (27.0-33.0); Mean Corpuscular Volume 95.1 fL (81.6-98.3); Platelet Count 156 10x3/uL (150-450); Red Blood Cell (RBC) Count 2.63 10x6/uL (3.90-5.03); White Blood Cell (WBC) Count 6.3 10x3/uL (3.5-10.5)
[2024-03-01 06:01] LABS: Anion Gap 13 mmol/L (10-20); BUN (Urea Nitrogen) 47 mg/dL (9.8-20.1); Calc. Creatinine Clearance 44 mL/min (70-130); Calcium 9.4 mg/dL (7.8-10.44); Carbon Dioxide 20 mmol/L (23-31); Chloride 112 mmol/L (98-107); Estimated GFR 29; Glucose 146 mg/dL (80-115); Potassium 4.1 mmol/L (3.5-5.1); Sodium 141 mmol/L (136-145)
[2024-03-01] MEDS: Famotidine 20 MG TAB PO SCH (09:34)
[2024-03-01] MEDS: Torsemide 20 MG TAB PO SCH (09:35)
[2024-03-01] MEDS: EPOETIN ALFA-EPBX (ESRD) 2,000 UNITS/ML VIAL SC SCH (13:42)
[2024-03-01] MEDS: EPOETIN ALFA-EPBX (ESRD) 3,000 UNITS/ML VIAL SC SCH (13:42)
[2024-03-02 03:39] LABS: #Basophils 0.04 10x3/uL (0.0-0.2); #Eosinphils 0.39 10x3/uL (0.0-0.5); #Monocytes 0.54 10x3/uL (0.0-1.1); #Neutrophils 3.47 10x3/uL (1.5-8.4); %Basophils 0.7 % (0.0-2.0); %Eosinophils 6.9 % (0.0-6.0); %Lymphocytes 20.6 % (18.0-47.0); %Monocytes 9.6 % (0.0-10.0); %Neutrophils 61.8 % (40.0-75.0); Hematocrit 24.8 % (34.9-44.5); Hemoglobin 7.9 g/dL (12.0-15.5); Mean Corpuscular HGB CONC 31.9 g/dL (32.0-36.0); Mean Corpuscular Hemoglobin 30.7 pg (27.0-33.0); Mean Corpuscular Volume 96.5 fL (81.6-98.3); Platelet Count 146 10x3/uL (150-450); RBC Distribution Width 15.3 % (11.5-14.5); Red Blood Cell (RBC) Count 2.57 10x6/uL (3.90-5.03); White Blood Cell (WBC) Count 5.6 10x3/uL (3.5-10.5)
[2024-03-02 03:58] LABS: Anion Gap 12 mmol/L (10-20); BUN (Urea Nitrogen) 52 mg/dL (9.8-20.1); Calc. Creatinine Clearance 39 mL/min (70-130); Calcium 9.4 mg/dL (7.8-10.44); Carbon Dioxide 20 mmol/L (23-31); Chloride 110 mmol/L (98-107); Estimated GFR 25; Glucose 176 mg/dL (80-115); Potassium 4.3 mmol/L (3.5-5.1); Sodium 138 mmol/L (136-145)
[2024-03-02] MEDS: Famotidine 20 MG TAB PO SCH (09:24)
[2024-03-03 05:15] LABS: #Basophils 0.03 10x3/uL (0.0-0.2); #Eosinphils 0.25 10x3/uL (0.0-0.5); #Monocytes 0.32 10x3/uL (0.0-1.1); #Neutrophils 2.71 10x3/uL (1.5-8.4); %Basophils 0.7 % (0.0-2.0); %Eosinophils 5.8 % (0.0-6.0); %Lymphocytes 23.3 % (18.0-47.0); %Monocytes 7.4 % (0.0-10.0); %Neutrophils 62.3 % (40.0-75.0); Hematocrit 27.7 % (34.9-44.5); Mean Corpuscular HGB CONC 32.5 g/dL (32.0-36.0); Mean Corpuscular Hemoglobin 30.4 pg (27.0-33.0); Mean Corpuscular Volume 93.6 fL (81.6-98.3); Mean Platelet Volume 10.4 fL (7.4-10.4); Platelet Count 146 10x3/uL (150-450); RBC Distribution Width 15.7 % (11.5-14.5); Red Blood Cell (RBC) Count 2.96 10x6/uL (3.90-5.03); White Blood Cell (WBC) Count 4.3 10x3/uL (3.5-10.5)
[2024-03-03 05:28] LABS: Anion Gap 16 mmol/L (10-20); BUN (Urea Nitrogen) 53 mg/dL (9.8-20.1); Calc. Creatinine Clearance 39 mL/min (70-130); Calcium 9.5 mg/dL (7.8-10.44); Carbon Dioxide 17 mmol/L (23-31); Chloride 110 mmol/L (98-107); Estimated GFR 25; Glucose 118 mg/dL (80-115); Potassium 4.6 mmol/L (3.5-5.1); Sodium 138 mmol/L (136-145)
[2024-03-03] MEDS: Loperamide HCl 2 MG CAP PO SCH (08:10)
[2024-03-03] MEDS: Loperamide HCl 2 MG CAP PO PRN (11:21)
[2024-03-04 05:15] LABS: #Basophils 0.01 10x3/uL (0.0-0.2); #Eosinphils 0.43 10x3/uL (0.0-0.5); #Neutrophils 3.04 10x3/uL (1.5-8.4); %Basophils 0.2 % (0.0-2.0); %Eosinophils 8.7 % (0.0-6.0); %Lymphocytes 21.7 % (18.0-47.0); %Neutrophils 61.2 % (40.0-75.0); Hematocrit 27.1 % (34.9-44.5); Hemoglobin 8.6 g/dL (12.0-15.5); Mean Corpuscular HGB CONC 31.7 g/dL (32.0-36.0); Mean Corpuscular Hemoglobin 29.9 pg (27.0-33.0); Mean Corpuscular Volume 94.1 fL (81.6-98.3); Mean Platelet Volume 10.2 fL (7.4-10.4); Platelet Count 131 10x3/uL (150-450); RBC Distribution Width 15.4 % (11.5-14.5); Red Blood Cell (RBC) Count 2.88 10x6/uL (3.90-5.03)
[2024-03-04 05:34] LABS: Anion Gap 14 mmol/L (10-20); BUN (Urea Nitrogen) 50 mg/dL (9.8-20.1); Calc. Creatinine Clearance 38 mL/min (70-130); Calcium 9.4 mg/dL (7.8-10.44); Carbon Dioxide 19 mmol/L (23-31); Chloride 110 mmol/L (98-107); Estimated GFR 24; Glucose 107 mg/dL (80-115); Potassium 3.9 mmol/L (3.5-5.1); Sodium 139 mmol/L (136-145)
[2024-03-04] MEDS: Sodium Chloride 0.9% 1,000 ML IV SCH (20:05)
[2024-03-05 04:21] LABS: #Basophils 0.01 10x3/uL (0.0-0.2); #Eosinphils 0.28 10x3/uL (0.0-0.5); #Monocytes 0.57 10x3/uL (0.0-1.1); #Neutrophils 6.31 10x3/uL (1.5-8.4); %Basophils 0.1 % (0.0-2.0); %Eosinophils 3.6 % (0.0-6.0); %Lymphocytes 7.8 % (18.0-47.0); %Monocytes 7.3 % (0.0-10.0); %Neutrophils 80.8 % (40.0-75.0); Hematocrit 29.1 % (34.9-44.5); Hemoglobin 9.2 g/dL (12.0-15.5); Mean Corpuscular HGB CONC 31.6 g/dL (32.0-36.0); Mean Corpuscular Hemoglobin 29.8 pg (27.0-33.0); Mean Corpuscular Volume 94.2 fL (81.6-98.3); Platelet Count 147 10x3/uL (150-450); RBC Distribution Width 15.4 % (11.5-14.5); Red Blood Cell (RBC) Count 3.09 10x6/uL (3.90-5.03); White Blood Cell (WBC) Count 7.8 10x3/uL (3.5-10.5)
[2024-03-05 04:54] LABS: Anion Gap 14 mmol/L (10-20); BUN (Urea Nitrogen) 50 mg/dL (9.8-20.1); Calc. Creatinine Clearance 36 mL/min (70-130); Calcium 9.3 mg/dL (7.8-10.44); Carbon Dioxide 17 mmol/L (23-31); Chloride 111 mmol/L (98-107); Estimated GFR 23; Glucose 127 mg/dL (80-115); Potassium 4.4 mmol/L (3.5-5.1); Sodium 138 mmol/L (136-145)
[2024-03-05] MEDS: Amlodipine 5 MG TAB PO SCH ×2 (10:52→11:18)
[2024-03-05] MEDS: Loperamide HCl 2 MG CAP PO SCH (11:17)
[2024-03-05] MEDS: Dicyclomine 10 MG CAP PO SCH ×2 (11:21→14:07)
[2024-03-05] MEDS: Sodium Bicarbonate Tab 325 MG TAB PO SCH ×2 (14:07→23:13)
[2024-03-05] MEDS: Loperamide HCl 2 MG CAP PO PRN (14:37)
[2024-03-05] MEDS: Ondansetron PF 4 MG/2 ML Vial IVP SCH (18:10)
[2024-03-05 23:07] LABS: Campy jejuni + coli by PCR Negative (Negative); STEC Shiga Toxin 1+2 Negative (Negative); Salmonella spp. by PCR Negative (Negative); Shigella spp + EIEC by PCR Negative (Negative)
[2024-03-05] MEDS: Ondansetron PF 4 MG/2 ML Vial IVP PRN (23:07)
[2024-03-06] MEDS: Loperamide HCl 2 MG CAP PO SCH (03:56)
[2024-03-06 05:03] LABS: Anion Gap 12 mmol/L (10-20); BUN (Urea Nitrogen) 48 mg/dL (9.8-20.1); Calc. Creatinine Clearance 37 mL/min (70-130); Calcium 9.3 mg/dL (7.8-10.44); Carbon Dioxide 19 mmol/L (23-31); Chloride 114 mmol/L (98-107); Estimated GFR 23; Glucose 84 mg/dL (80-115); Potassium 4.4 mmol/L (3.5-5.1); Sodium 141 mmol/L (136-145)
[2024-03-06 05:09] LABS: Hematocrit 30.9 % (34.9-44.5); Hemoglobin 9.7 g/dL (12.0-15.5); Platelet Count 148 10x3/uL (150-450)
[2024-03-07 05:29] LABS: Anion Gap 12 mmol/L (10-20); BUN (Urea Nitrogen) 48 mg/dL (9.8-20.1); Calc. Creatinine Clearance 33 mL/min (70-130); Calcium 9.2 mg/dL (7.8-10.44); Carbon Dioxide 18 mmol/L (23-31); Chloride 112 mmol/L (98-107); Estimated GFR 20; Glucose 65 mg/dL (80-115); Sodium 138 mmol/L (136-145)
[2024-03-07 10:02] VITALS: BMI 34.9
[2024-03-07] MEDS: Metamucil PACK PO SCH ×2 (11:16→18:20)
[2024-03-07] MEDS: Loperamide HCl 2 MG CAP PO SCH (12:24)
[2024-03-07] MEDS: Sodium Bicarbonate Tab 325 MG TAB PO SCH (21:46)
[2024-03-08 03:51] LABS: Anion Gap 13 mmol/L (10-20); BUN (Urea Nitrogen) 53 mg/dL (9.8-20.1); Calc. Creatinine Clearance 30 mL/min (70-130); Calcium 9.2 mg/dL (7.8-10.44); Carbon Dioxide 16 mmol/L (23-31); Chloride 111 mmol/L (98-107); Estimated GFR 18; Potassium 3.8 mmol/L (3.5-5.1); Sodium 136 mmol/L (136-145)
[2024-03-08 04:02] LABS: Critical Call Chemistry NUR.JP14@0358; Glucose 49 mg/dL (80-115)
[2024-03-08] MEDS: Dextrose 50% Abboject 50 ML SYRINGE SLOW IVP SCH (04:45)
[2024-03-08] MEDS: Dextrose 50% Abboject 50 ML SYRINGE ONE (05:33)
[2024-03-08] MEDS: Magnesium 2 GM/50 ML(in water) 2 GM in Premix 1 BAG IVPB SCH (11:07)
[2024-03-08 12:25] LABS: #Basophils 0.02 10x3/uL (0.0-0.2); #Eosinphils 0.29 10x3/uL (0.0-0.5); #Monocytes 1.01 10x3/uL (0.0-1.1); #Neutrophils 5.57 10x3/uL (1.5-8.4); %Basophils 0.3 % (0.0-2.0); %Eosinophils 3.7 % (0.0-6.0); %Lymphocytes 12.8 % (18.0-47.0); %Monocytes 12.8 % (0.0-10.0); %Neutrophils 70.1 % (40.0-75.0); Hematocrit 29.8 % (34.9-44.5); Hemoglobin 9.6 g/dL (12.0-15.5); Mean Corpuscular HGB CONC 32.2 g/dL (32.0-36.0); Mean Corpuscular Hemoglobin 30.3 pg (27.0-33.0); Mean Platelet Volume 10.2 fL (7.4-10.4); Platelet Count 149 10x3/uL (150-450); RBC Distribution Width 14.8 % (11.5-14.5); Red Blood Cell (RBC) Count 3.17 10x6/uL (3.90-5.03); White Blood Cell (WBC) Count 7.9 10x3/uL (3.5-10.5)
[2024-03-08] MEDS: Sodium Chloride 0.9% 1,000 ML IV SCH (14:18)
[2024-03-08] MEDS: metroNIDAZOLE 500 MG TAB PO SCH ×2 (14:19→21:21)
[2024-03-08] MEDS: Vancomycin HCl 125 MG Capsule PO SCH (17:43)
[2024-03-08] MEDS: Mag-Al 1200 mg/1200 mg/30 ML UDCUP PO PRN (23:39)
[2024-03-09 03:36] LABS: #Basophils 0.02 10x3/uL (0.0-0.2); #Eosinphils 0.38 10x3/uL (0.0-0.5); #Monocytes 1.05 10x3/uL (0.0-1.1); #Neutrophils 4.96 10x3/uL (1.5-8.4); %Basophils 0.3 % (0.0-2.0); %Eosinophils 4.8 % (0.0-6.0); %Lymphocytes 18.9 % (18.0-47.0); %Monocytes 13.2 % (0.0-10.0); %Neutrophils 62.4 % (40.0-75.0); Hematocrit 27.9 % (34.9-44.5); Hemoglobin 8.9 g/dL (12.0-15.5); Mean Corpuscular HGB CONC 31.9 g/dL (32.0-36.0); Mean Corpuscular Hemoglobin 29.8 pg (27.0-33.0); Mean Corpuscular Volume 93.3 fL (81.6-98.3); Mean Platelet Volume 10.2 fL (7.4-10.4); Platelet Count 153 10x3/uL (150-450); RBC Distribution Width 14.7 % (11.5-14.5); Red Blood Cell (RBC) Count 2.99 10x6/uL (3.90-5.03); White Blood Cell (WBC) Count 7.9 10x3/uL (3.5-10.5)
[2024-03-09 03:53] LABS: Anion Gap 11 mmol/L (10-20); BUN (Urea Nitrogen) 51 mg/dL (9.8-20.1); Calc. Creatinine Clearance 31 mL/min (70-130); Carbon Dioxide 16 mmol/L (23-31); Chloride 113 mmol/L (98-107); Estimated GFR 18; Glucose 116 mg/dL (80-115); Potassium 3.7 mmol/L (3.5-5.1); Sodium 136 mmol/L (136-145)
[2024-03-09] MEDS: Sodium Chloride 0.9% 1,000 ML IV SCH (20:46)
[2024-03-10 04:20] LABS: Anion Gap 12 mmol/L (10-20); BUN (Urea Nitrogen) 46 mg/dL (9.8-20.1); Calc. Creatinine Clearance 35 mL/min (70-130); Calcium 9.1 mg/dL (7.8-10.44); Carbon Dioxide 18 mmol/L (23-31); Chloride 114 mmol/L (98-107); Estimated GFR 21; Glucose 140 mg/dL (80-115); Potassium 3.9 mmol/L (3.5-5.1); Sodium 140 mmol/L (136-145)
[2024-03-10 04:22] LABS: Hematocrit 28.5 % (34.9-44.5)
[2024-03-10] MEDS: Amlodipine 5 MG TAB PO SCH (17:03)
[2024-03-11 04:12] LABS: Anion Gap 11 mmol/L (10-20); BUN (Urea Nitrogen) 38 mg/dL (9.8-20.1); Calc. Creatinine Clearance 41 mL/min (70-130); Carbon Dioxide 16 mmol/L (23-31); Chloride 116 mmol/L (98-107); Estimated GFR 26; Glucose 87 mg/dL (80-115); Potassium 3.9 mmol/L (3.5-5.1); Sodium 139 mmol/L (136-145)
[2024-03-11] MEDS: Amlodipine 5 MG TAB PO SCH (08:18)
[2024-03-11 12:01] VITALS: BP 177/77; TEMP 98.8
[2024-03-12 16:13] LABS: Adenovirus F 40-41 Not Detected (Not Detected); Astrovirus Not Detected (Not Detected); C. difficile toxin A+B Not Detected (Not Detected); Campylobacter by PCR Not Detected (Not Detected); Cryptosporidium Not Detected (Not Detected); Cyclospora cayetanensis Not Detected (Not Detected); Entamoeba histolytica Not Detected (Not Detected); Enteroaggregative E. coli Not Detected (Not Detected); Enteropathogenic E. coli DETECTED (Not Detected); Enterotoxigenic E. coli Not Detected (Not Detected); Giardia lamblia Not Detected (Not Detected); Norovirus GI-GII Not Detected (Not Detected); Plesiomonas shigelloides Not Detected (Not Detected); Rotavirus A Not Detected (Not Detected); Salmonella Not Detected (Not Detected); Sapovirus Not Detected (Not Detected); Shiga-toxin-producing E coli Not Detected (Not Detected); Shigella/Enteroinvasive E coli Not Detected (Not Detected); Vibrio Not Detected (Not Detected); Vibrio cholerae Not Detected (Not Detected); Yersinia enterocolitica Not Detected (Not Detected)
== END 2024-03-11 14:20 | disposition home health service (06) | DRG 280 ==
LOC: CSHERS 12:46 → CSHTELE 16:19
PROVIDERS: ADMIT Family Medicine; ATTEND Internal Medicine
PROC: B2181ZZ Fluoroscopy of Left Internal Mammary Bypass Graft using Low Osmolar Contrast (ICD-10-PCS; principal; 2024-02-28)
PROC: B2111ZZ Fluoroscopy of Multiple Coronary Arteries using Low Osmolar Contrast (ICD-10-PCS; 2024-02-28)
PROC: B2131ZZ Fluoroscopy of Multiple Coronary Artery Bypass Grafts using Low Osmolar Contrast (ICD-10-PCS; 2024-02-28)
PROC: 30233N1 Transfusion of Nonautologous Red Blood Cells into Peripheral Vein, Percutaneous Approach (ICD-10-PCS; 2024-03-02)
DX: I13.0 Hypertensive heart and chronic kidney disease with heart failure and stage 1 through stage 4 chronic kidney disease, or unspecified chronic kidney disease (principal); I50.43 Acute on chronic combined systolic (congestive) and diastolic (congestive) heart failure; I21.A1 Myocardial infarction type 2; J96.01 Acute respiratory failure with hypoxia; N17.9 Acute kidney failure, unspecified; N18.4 Chronic kidney disease, stage 4 (severe); E87.20 Acidosis, unspecified; J98.11 Atelectasis; I25.10 Atherosclerotic heart disease of native coronary artery without angina pectoris; A08.4 Viral intestinal infection, unspecified; K59.00 Constipation, unspecified; F41.9 Anxiety disorder, unspecified; F32.A Depression, unspecified; K21.9 Gastro-esophageal reflux disease without esophagitis; G43.909 Migraine, unspecified, not intractable, without status migrainosus; E11.22 Type 2 diabetes mellitus with diabetic chronic kidney disease; M19.90 Unspecified osteoarthritis, unspecified site; R33.9 Retention of urine, unspecified; E78.2 Mixed hyperlipidemia; I48.0 Paroxysmal atrial fibrillation; D63.1 Anemia in chronic kidney disease; E11.43 Type 2 diabetes mellitus with diabetic autonomic (poly)neuropathy; G47.30 Sleep apnea, unspecified; F41.1 Generalized anxiety disorder; F01.50 Vascular dementia, unspecified severity, without behavioral disturbance, psychotic disturbance, mood disturbance, and anxiety; E66.9 Obesity, unspecified; D50.9 Iron deficiency anemia, unspecified; E11.65 Type 2 diabetes mellitus with hyperglycemia; E87.6 Hypokalemia; E89.0 Postprocedural hypothyroidism; I65.23 Occlusion and stenosis of bilateral carotid arteries; Z90.49 Acquired absence of other specified parts of digestive tract; Z95.1 Presence of aortocoronary bypass graft; Z95.5 Presence of coronary angioplasty implant and graft; Z90.710 Acquired absence of both cervix and uterus; Z86.73 Personal history of transient ischemic attack (TIA), and cerebral infarction without residual deficits; Z88.8 Allergy status to other drugs, medicaments and biological substances; Z88.1 Allergy status to other antibiotic agents; Z88.0 Allergy status to penicillin; Z79.899 Other long term (current) drug therapy; Z79.890 Hormone replacement therapy; Z68.34 Body mass index [BMI] 34.0-34.9, adult; R53.81 Other malaise; I13.10 Hypertensive heart and chronic kidney disease without heart failure, with stage 1 through stage 4 chronic kidney disease, or unspecified chronic kidney disease
CPT/HCPCS: 36215; 36225; 36415; 36416; 36430; 71045; 71250; 74176; 75710; 80048; 80053; 80061; 80069; 81015; 82274; 82728; 83540; 83550; 83630; 83735; 83880; 83970; 84145; 84439; 84443; 84481; 84484; 85014; 85018; 85025; 85049; 85610; 85730; 86850; 86900; 86901; 87040; 87324; 87449; 87505; 87507; 93005; 93010; 93306; 93455; 93970; 94760; 94762; 96372; 96374; 96375; 96376; 99152; 99153; C1760; C1769; J0153; J0692; J1644; J1650; J1815; J1940; J2001; J2250; J2405; J2916; J3010; J3370; J3475; J3490; J7030; J7050; J7999; P9016; P9047; Q5105; Q9967

== ENCOUNTER 2024-03-13 14:32 | Inpatient (IN) | payer MEDICARE ==
[2024-03-13 15:17] LABS: #Basophils 0.02 10x3/uL (0.0-0.2); #Eosinphils 0.06 10x3/uL (0.0-0.5); #Monocytes 0.94 10x3/uL (0.0-1.1); #Neutrophils 3.07 10x3/uL (1.5-8.4); %Basophils 0.4 % (0.0-2.0); %Eosinophils 1.2 % (0.0-6.0); %Lymphocytes 16.3 % (18.0-47.0); %Monocytes 19.1 % (0.0-10.0); %Neutrophils 62.4 % (40.0-75.0); Hematocrit 31.3 % (34.9-44.5); Hemoglobin 9.9 g/dL (12.0-15.5); Mean Corpuscular HGB CONC 31.6 g/dL (32.0-36.0); Mean Corpuscular Hemoglobin 29.6 pg (27.0-33.0); Mean Corpuscular Volume 93.7 fL (81.6-98.3); Mean Platelet Volume 9.6 fL (7.4-10.4); Platelet Count 165 10x3/uL (150-450); Red Blood Cell (RBC) Count 3.34 10x6/uL (3.90-5.03); White Blood Cell (WBC) Count 4.9 10x3/uL (3.5-10.5)
[2024-03-13 15:23] LABS: ALT (SGPT) 16 U/L (8-55); AST (SGOT) 34 U/L (5-34); Albumin 2.8 g/dL (3.4-4.8); Alkaline Phosphatase 79 U/L (40-110); Anion Gap 10 mmol/L (10-20); BUN (Urea Nitrogen) 24 mg/dL (9.8-20.1); Bilirubin, Total 0.3 mg/dL (0.2-1.2); Calc. Creatinine Clearance 0 mL/min (70-130); Calcium 8.8 mg/dL (7.8-10.44); Carbon Dioxide 20 mmol/L (23-31); Chloride 117 mmol/L (98-107); Estimated GFR 32; Glucose 98 mg/dL (80-115); Potassium 3.9 mmol/L (3.5-5.1); Protein, Total 5.8 g/dL (5.8-8.1); Sodium 143 mmol/L (136-145)
[2024-03-13 15:50] LABS: Influenza A by NAA Not Detected (NotDetected); Influenza B by NAA Not Detected (NotDetected); SARS-CoV-2 NAA Rapid Test DETECTED (NotDetected)
[2024-03-13] MEDS ORDERED: Dexamethasone 10 MG/ML VIAL ONE (16:35)
[2024-03-13] MEDS ORDERED: Calcium Carbonate 500 MG ChewTAB PO PRN (19:52)
[2024-03-13] MEDS ORDERED: Dextrose 50% Abboject 50 ML SYRINGE SLOW IVP PRN (19:58)
[2024-03-13] MEDS ORDERED: Glucagon 1 MG/ML KIT IM PRN (19:58)
[2024-03-13] MEDS ORDERED: Dextrose 5% in Water 1,000 ML IV PRN (19:58)
[2024-03-13] MEDS ORDERED: ALPRAZolam 0.25 MG TAB PO PRN (20:00)
[2024-03-13 20:34] VITALS: BMI 36.0
[2024-03-13] MEDS: Ranolazine ER 500 MG TAB PO SCH (21:00)
[2024-03-13] MEDS: CO Q-10 CAPSULE 50 MG PO SCH (21:00)
[2024-03-13] MEDS: Rosuvastatin 10 MG TAB PO SCH (21:00)
[2024-03-13] MEDS: Pantoprazole DR 40 MG TAB PO SCH (21:00)
[2024-03-13] MEDS: Gabapentin 100 MG CAP PO SCH (21:00)
[2024-03-13] MEDS: Amlodipine 5 MG TAB PO SCH (21:00)
[2024-03-13] MEDS: Benzonatate 100 MG CAP PO SCH (21:00)
[2024-03-13] MEDS: Furosemide 40 MG (4 mL) VIAL SLOW IVP SCH (21:01)
[2024-03-13] MEDS: Primidone 50 MG TAB PO SCH (21:22)
[2024-03-14 03:53] LABS: #Basophils 0.01 10x3/uL (0.0-0.2); #Monocytes 0.11 10x3/uL (0.0-1.1); #Neutrophils 3.15 10x3/uL (1.5-8.4); %Basophils 0.3 % (0.0-2.0); %Lymphocytes 13.4 % (18.0-47.0); %Monocytes 2.9 % (0.0-10.0); %Neutrophils 82.6 % (40.0-75.0); Hematocrit 35.7 % (34.9-44.5); Hemoglobin 11.2 g/dL (12.0-15.5); Mean Corpuscular HGB CONC 31.4 g/dL (32.0-36.0); Mean Corpuscular Hemoglobin 29.5 pg (27.0-33.0); Mean Corpuscular Volume 93.9 fL (81.6-98.3); Mean Platelet Volume 9.6 fL (7.4-10.4); Platelet Count 173 10x3/uL (150-450); RBC Distribution Width 15.2 % (11.5-14.5); White Blood Cell (WBC) Count 3.8 10x3/uL (3.5-10.5)
[2024-03-14 03:55] LABS: Anion Gap 16 mmol/L (10-20); BUN (Urea Nitrogen) 27 mg/dL (9.8-20.1); Calc. Creatinine Clearance 52 mL/min (70-130); Calcium 8.9 mg/dL (7.8-10.44); Carbon Dioxide 15 mmol/L (23-31); Chloride 115 mmol/L (98-107); Estimated GFR 33; Glucose 164 mg/dL (80-115); Potassium 4.3 mmol/L (3.5-5.1); Sodium 142 mmol/L (136-145)
[2024-03-14 04:20] LABS: Troponin I 0.061 ng/mL (< 0.028)
[2024-03-14] MEDS: Levothyroxine Sodium 75 MCG TAB PO SCH (04:58)
[2024-03-14] MEDS: Folic Acid/Vit B Comp W-C PO SCH (09:22)
[2024-03-14] MEDS: Escitalopram Oxalate 10 mg Tablet PO SCH (09:24)
[2024-03-14] MEDS: Calcitriol 0.25 MCG CAP PO SCH (09:24)
[2024-03-14] MEDS: Carvedilol 12.5 MG TAB PO SCH (09:24)
[2024-03-14] MEDS: Isosorbide Mononitrate 60 MG ER.TAB PO SCH (09:24)
[2024-03-14] MEDS: Furosemide 40 MG (4 mL) VIAL SLOW IVP SCH (09:34)
[2024-03-14] MEDS: Lantus 1000 UNITS/10 ML VIAL SC SCH (09:35)
[2024-03-14] MEDS: Enoxaparin 40 MG (0.4 mL) SYRINGE SC SCH (09:36)
[2024-03-14] MEDS: Zinc Sulfate 220 MG CAP PO SCH (09:40)
[2024-03-14] MEDS: Zinc Gluconate 50 MG TAB PO SCH (10:35)
[2024-03-14] MEDS: traMADol HCl 50 MG TAB PO PRN (11:06)
[2024-03-14] MEDS ORDERED: Dexamethasone 4 mg/ml Vial SLOW IVP SCH (12:00)
[2024-03-14] MEDS: Insulin Lispro 100 UNIT/ML 10 ML VIAL SC PRN (12:50)
[2024-03-14] MEDS: Ondansetron PF 4 MG/2 ML Vial IVP PRN (13:49)
[2024-03-15 05:01] LABS: #Monocytes 0.74 10x3/uL (0.0-1.1); #Neutrophils 4.06 10x3/uL (1.5-8.4); %Lymphocytes 13.4 % (18.0-47.0); %Monocytes 13.2 % (0.0-10.0); %Neutrophils 72.5 % (40.0-75.0); Hematocrit 29.8 % (34.9-44.5); Hemoglobin 9.4 g/dL (12.0-15.5); Mean Corpuscular HGB CONC 31.5 g/dL (32.0-36.0); Mean Corpuscular Hemoglobin 29.2 pg (27.0-33.0); Mean Corpuscular Volume 92.5 fL (81.6-98.3); Mean Platelet Volume 9.9 fL (7.4-10.4); Platelet Count 181 10x3/uL (150-450); RBC Distribution Width 14.8 % (11.5-14.5); Red Blood Cell (RBC) Count 3.22 10x6/uL (3.90-5.03); White Blood Cell (WBC) Count 5.6 10x3/uL (3.5-10.5)
[2024-03-15 05:11] LABS: Anion Gap 13 mmol/L (10-20); BUN (Urea Nitrogen) 39 mg/dL (9.8-20.1); Calc. Creatinine Clearance 45 mL/min (70-130); Calcium 8.6 mg/dL (7.8-10.44); Carbon Dioxide 19 mmol/L (23-31); Chloride 112 mmol/L (98-107); Estimated GFR 28; Glucose 238 mg/dL (80-115); Potassium 4.8 mmol/L (3.5-5.1); Sodium 139 mmol/L (136-145)
[2024-03-15] MEDS: guaiFENesin ER 600 MG TAB PO SCH (14:27)
[2024-03-15] MEDS: Furosemide 40 MG TAB PO SCH (15:16)
[2024-03-15] MEDS: Carvedilol 12.5 MG TAB PO SCH (17:06)
[2024-03-16] MEDS: Benzonatate 100 MG CAP PO PRN (03:51)
[2024-03-16 04:19] LABS: #Basophils 0.02 10x3/uL (0.0-0.2); #Eosinphils 0.02 10x3/uL (0.0-0.5); #Monocytes 0.69 10x3/uL (0.0-1.1); #Neutrophils 5.71 10x3/uL (1.5-8.4); %Basophils 0.3 % (0.0-2.0); %Eosinophils 0.3 % (0.0-6.0); %Lymphocytes 15.1 % (18.0-47.0); %Neutrophils 74.6 % (40.0-75.0); Hematocrit 29.9 % (34.9-44.5); Hemoglobin 9.5 g/dL (12.0-15.5); Mean Corpuscular HGB CONC 31.8 g/dL (32.0-36.0); Mean Corpuscular Hemoglobin 29.2 pg (27.0-33.0); Mean Platelet Volume 9.6 fL (7.4-10.4); Platelet Count 166 10x3/uL (150-450); RBC Distribution Width 14.9 % (11.5-14.5); Red Blood Cell (RBC) Count 3.25 10x6/uL (3.90-5.03); White Blood Cell (WBC) Count 7.6 10x3/uL (3.5-10.5)
[2024-03-16 04:25] LABS: Anion Gap 12 mmol/L (10-20); BUN (Urea Nitrogen) 42 mg/dL (9.8-20.1); Calc. Creatinine Clearance 40 mL/min (70-130); Calcium 8.4 mg/dL (7.8-10.44); Carbon Dioxide 19 mmol/L (23-31); Chloride 109 mmol/L (98-107); Estimated GFR 24; Glucose 231 mg/dL (80-115); Potassium 4.4 mmol/L (3.5-5.1); Sodium 136 mmol/L (136-145)
[2024-03-16] MEDS: Sodium Bicarbonate Tab 325 MG TAB PO SCH (14:55)
[2024-03-16] MEDS ORDERED: Ipratropium/Albuterol 3 ML NEB NEB PRN (15:11)
[2024-03-16] MEDS: Ventolin HFA Inhaler 60 PUFF INHALER INH PRN (16:15)
[2024-03-16] MEDS: Albumin 25% 25 GM (100 mL) BOT IVPB SCH (17:29)
[2024-03-17 04:44] LABS: #Basophils 0.01 10x3/uL (0.0-0.2); #Eosinphils 0.11 10x3/uL (0.0-0.5); #Monocytes 0.61 10x3/uL (0.0-1.1); #Neutrophils 4.94 10x3/uL (1.5-8.4); %Basophils 0.1 % (0.0-2.0); %Eosinophils 1.6 % (0.0-6.0); %Lymphocytes 14.6 % (18.0-47.0); %Monocytes 9.1 % (0.0-10.0); %Neutrophils 73.7 % (40.0-75.0); Hemoglobin 9.4 g/dL (12.0-15.5); Mean Corpuscular HGB CONC 31.3 g/dL (32.0-36.0); Mean Corpuscular Hemoglobin 29.3 pg (27.0-33.0); Mean Corpuscular Volume 93.5 fL (81.6-98.3); Mean Platelet Volume 9.3 fL (7.4-10.4); Platelet Count 140 10x3/uL (150-450); RBC Distribution Width 14.8 % (11.5-14.5); Red Blood Cell (RBC) Count 3.21 10x6/uL (3.90-5.03); White Blood Cell (WBC) Count 6.7 10x3/uL (3.5-10.5)
[2024-03-17 05:00] LABS: Anion Gap 13 mmol/L (10-20); BUN (Urea Nitrogen) 45 mg/dL (9.8-20.1); Calc. Creatinine Clearance 35 mL/min (70-130); Calcium 8.9 mg/dL (7.8-10.44); Carbon Dioxide 20 mmol/L (23-31); Chloride 108 mmol/L (98-107); Estimated GFR 21; Glucose 153 mg/dL (80-115); Potassium 4.9 mmol/L (3.5-5.1); Sodium 136 mmol/L (136-145)
[2024-03-17] MEDS ORDERED: Furosemide 40 MG TAB PO SCH (07:30)
[2024-03-17 10:59] LABS: Creatinine, Urine 103.21 mg/dL (47-110)
[2024-03-17 11:59] LABS: Actual Bicarbonate (HCO3a) 18.1 mEq/L (22-28); Analyzer IN Cardio CS ICU; Base Excess (BEa) -7.4 mEq/L (-2.0 to +3.0); CO2 Tension 36.3 mmHg (35.0-45.0); Calcium, Ionized (arterial) 1.12 mmol/L (1.12-1.30); Carboxyhemoglobin (COHb) 0.3 gm% (0.0-3.0); Hematocrit-ABG 29 % (36.0-47.0); Hemoglobin (Hb) 9.7 g/dL (12.0-16.0); O2 Tension (PaO2), arterial 72.5 mmHg (> 70.0); Potassium - ABG Lab 4.71 mmol/L (3.70-5.30); Puncture Site Left Radial artery; pH, Arterial 7.315 (7.35-7.45)
[2024-03-17 12:03] LABS: ALV-art Gradient 81.765 mmHg (0-20)
[2024-03-17] MEDS: Acetaminophen 325 MG TAB PO PRN (17:02)
[2024-03-17 20:13] VITALS: BP 108/58; TEMP 98.8
== END 2024-03-17 19:50 | disposition short-term general hospital (02) | DRG 177 ==
LOC: CSHERS 14:32 → CSHTELE 17:17
PROVIDERS: ADMIT Internal Medicine; ATTEND Internal Medicine
PROC: 30233J1 Transfusion of Nonautologous Serum Albumin into Peripheral Vein, Percutaneous Approach (ICD-10-PCS; 2024-03-16)
PROC: 4A033R1 Measurement of Arterial Saturation, Peripheral, Percutaneous Approach (ICD-10-PCS; principal; 2024-03-17)
DX: U07.1 COVID-19 (principal); I21.4 Non-ST elevation (NSTEMI) myocardial infarction; I50.33 Acute on chronic diastolic (congestive) heart failure; J96.01 Acute respiratory failure with hypoxia; J12.82 Pneumonia due to coronavirus disease 2019; I13.0 Hypertensive heart and chronic kidney disease with heart failure and stage 1 through stage 4 chronic kidney disease, or unspecified chronic kidney disease; F33.9 Major depressive disorder, recurrent, unspecified; N17.9 Acute kidney failure, unspecified; M62.81 Muscle weakness (generalized); Z88.8 Allergy status to other drugs, medicaments and biological substances; Z88.1 Allergy status to other antibiotic agents; Z86.73 Personal history of transient ischemic attack (TIA), and cerebral infarction without residual deficits; E03.9 Hypothyroidism, unspecified; K21.9 Gastro-esophageal reflux disease without esophagitis; Z90.49 Acquired absence of other specified parts of digestive tract; Z98.890 Other specified postprocedural states; F41.9 Anxiety disorder, unspecified; I25.10 Atherosclerotic heart disease of native coronary artery without angina pectoris; E11.22 Type 2 diabetes mellitus with diabetic chronic kidney disease; N18.30 Chronic kidney disease, stage 3 unspecified; Z90.710 Acquired absence of both cervix and uterus; D63.1 Anemia in chronic kidney disease; E11.40 Type 2 diabetes mellitus with diabetic neuropathy, unspecified; Z79.899 Other long term (current) drug therapy; Z79.4 Long term (current) use of insulin; E86.0 Dehydration; E78.2 Mixed hyperlipidemia; I48.0 Paroxysmal atrial fibrillation; D50.9 Iron deficiency anemia, unspecified
CPT/HCPCS: 36415; 36416; 36600; 71045; 80048; 80053; 82570; 82805; 83880; 84300; 84484; 84540; 85025; 93005; 93010; 93306; 94760; 94762; 96374; J1100; J1650; J1815; J1940; J2405; P9047

== ENCOUNTER 2024-07-03 08:48 | Outpatient (CLI) | payer MEDICARE | END 2024-07-03 08:49 | disposition home or self-care (01) | LOC: CSHMRI 08:48 | PROVIDERS: ATTEND Student in an Organized Health Care Education/Training Program | DX: M47.26 Other spondylosis with radiculopathy, lumbar region (principal) | CPT/HCPCS: 72148 ==